=== PATIENT | male | born 1930 | race Caucasian/White ===

== ENCOUNTER 2020-10-25 11:45 | Inpatient (IN) ==
[2020-10-25] MEDS ORDERED: 0.9 % SODIUM CHLORIDE 500 ML IV ONE (12:10)
--- NOTE | 2020-10-25 12:15 | Emergency Department Note ---
Nausea/Vomiting/Diarrhea HPI General Chief complaint: Nausea/Vomiting/Diarrhea Stated complaint: diarrhea Time Seen by Provider: 10/25/20 11:51 Source: EMS Mode of arrival: ambulatory History of Present Illness HPI Narrative: Narrative: 89-year-old male with past medical history of dementia, hypertension, CKD, type 2 diabetes, upper GI bleed, rectal bleeding, dyslipidemia presents emergency department via EMS with complaints of diarrhea. Reports that this been going on for 1 day and that he has had about 10 bouts of diarrhea. He has not been on any recent antibiotics. He does have occasional diarrhea but not to this severity. He has not noticed any blood in his stool or melanotic stools. He denies fever, chest pain, shortness of breath, abdominal pain, nausea, vomiting. Although he denies that here in the emergency departme nt EMS got a report that the diarrhea has been going on for 3 days and he has been having increased weakness and has a had a decreased p.o. intake. Related Data Home Medications Medication Instructions Recorded Confirmed amlodipine 10 mg PO DAILY 09/16/15 08/26/20 cholecalciferol (vitamin D3) 50,000 unit PO WEEKLY 09/16/15 08/26/20 baclofen 10 mg tablet 10 mg PO QHS tab 04/25/18 08/26/20 hydroxyzine HCl 25 mg tablet 25 mg PO QHS tab 04/25/18 08/26/20 pravastatin 40 mg tablet 40 mg PO QDAY 04/25/18 08/26/20 ascorbic acid (vitamin C) 1,000 mg 1 g PO QDAY tab 09/23/18 08/26/20 tablet calcium citrate 500 mg PO QDAY tab 09/23/18 08/26/20 cholecalciferol (vitamin D3) 25 1,000 unit PO QDAY 09/23/18 08/26/20 mcg (1,000 unit) capsule docusate sodium 50 mg capsule 50 mg PO QDAY 09/23/18 08/26/20 glipizide 5 mg tablet, extended 15 mg PO QAMAC tab 09/23/18 08/26/20 release 24 hr [id number]-fish oil 120 1 cap PO QDAY cap 09/23/18 08/26/20 mg-180 mg-60 mg-1,200 mg capsule, DR agnieszka cesar 450 mg capsule 450 mg PO BID 09/23/18 08/26/20 vitamin B complex 1 tab PO QDAY 09/23/18 08/26/20 [place]'s wort 300 mg PO QAM 10/25/20 10/25/20 chromium picolinate 1,000 mcg PO ONCE 10/25/20 10/25/20 folic acid 800 mg PO HS 10/25/20 10/25/20 garlic 1,000 mg PO HS 10/25/20 10/25/20 omega 9-dox-rvj-fish oil [Fish Oil] 1 cap PO HS 10/25/20 10/25/20 Previous Rx's Medication Instructions Recorded bumetanide 1 mg tablet See Rx Instructions .ROUTE QDAY 05/06/20 #150 tab Allergies Allergy/AdvReac Type Severity Reaction Status Date / Time No Known Drug Allergies Allergy Verified 10/25/20 11:52 Review of Systems ROS ROS Narrative: Narrative: Patient denies chest pain, shortness breath, abdominal pain, nausea or vomiting, fever. All systems ED: reviewed and negative except as stated. Gastrointestinal: Reports diarrhea PFSH Narrative Patient History Narrative: Narrative: Medical/Surgical/Family History All Active Problems (Updated 10/25/20 @ 15:59 by Billy Carroll PA-C) EVERTON (acute kidney injury) (Acute) Hypokalemia (Acute) Acute renal failure superimposed on stage 4 chronic kidney disease (Acute) Dementia (Acute) Stage 3 acute kidney injury (Acute) Iron deficiency (Chronic) Localized edema due to fluid overload (Chronic) 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 (Chronic) Metabolic acidosis (Chronic) Hyperkalemia, diminished renal excretion (Chronic) CKD (chronic kidney disease) stage 4, GFR 15-29 ml/min (Chronic) Macular degeneration (Chronic) Upper gastrointestinal bleed (Chronic) Diabetes (Chronic) Anemia (Chronic) Rectal bleeding (Chronic) Elevated PSA (Chronic) Cholelithiasis (Chronic) Pancreatic atrophy (Chronic) Liver cyst (Chronic) Hyperlipidemia (Chronic) Hypertension (Chronic) Lower gastrointestinal hemorrhage (Acute) Medical History (Updated 10/25/20 @ 15:59 by Billy Carroll PA-C) Anemia Cholelithiasis Diabetes Elevated PSA Hyperlipidemia Hypertension Liver cyst Lower gastrointestinal hemorrhage Macular degeneration Pancreatic atrophy Rectal bleeding Upper gastrointestinal bleed Surgical History History of colonoscopy (09/17/15) Family History Other No pertinent family history Social History Smoking Status: Former smoker Alcohol Intake Frequency: holiday/special occasion only Exam Narrative Narrative: Narrative: General General appearance: Present alert and other (Nontoxic, no acute distress) Eye Eye: Present EOMI Respiratory Respiratory: Present normal lung sounds bilaterally Cardiovascular Cardiovascular: Present regular rate, normal rhythm and other (Radial pulse +2 bilaterally) Adbominal Abdominal: Present other (Soft, nondistended, no organomegaly no guarding no rebound tenderness.) Rectal Rectal: Present normal rectal tone, heme (-) stool and other Neurological Neurological: Present alert and other (Patient knows he is at [facility] in [place] but states that is 1968.) Psychiatric Psychiatric: Present normal affect Skin Skin: Present other (There is a chronic ulcer on the right plantar surface over the first distal metatarsal. It is nonweeping no surrounding erythema. Per nurse there is also chronic pressure sores on the patient's back as well as right buttock. These appear to be chronic and they are scabbed over.) Course Vital Signs Vital signs: Vital Signs Temperature 96.3 F L 10/25/20 11:48 Pulse Rate 67 10/25/20 11:48 Respiratory Rate 18 10/25/20 11:48 Blood Pressure 151/57 10/25/20 11:48 Pulse Oximetry (%) 99 10/25/20 11:48 Temperature 96.3 F L 10/25/20 11:48 Pulse Rate 69 10/25/20 15:31 Respiratory Rate 15 10/25/20 15:46 Blood Pressure 131/69 10/25/20 15:46 Pulse Oximetry (%) 100 10/25/20 15:31 MDM MDM Narrative Medical decision making narrative: Narrative: 89-year-old male presents emergency department via EMS with concerns of diarrhea. Per EMS that he is also been having the diarrhea for 3 days along with increased weakness and poor p.o. intake. On rectal exam he has heme negative. Per his history he does have kidney failure along with history of hyperkalemia so we will check a CMP for his electrolytes as well as a CBC to make sure there is no obvious signs of infection or signs of anemia since it looks like he does have a history of iron deficiency. We will give him a 500 cc bolus although his vital signs are normal and stable at this time. I did review his past charts that with nephrology with Dr. Villanueva which he has been reported to have diarrhea quite a bit which is seems to be caused by his iron pills. Nephrology did offer him iron infusions instead to help with this but declined. I did speak with the son who states that for the past year or so patient has been going downhill. In the last month or so patient has been repeating himself quite a bit more. Over the last 3 to 4 days the son states that he has been having worsening worse diarrhea where he is unable to make it to the bathroom since he has been more weak and today they were not even able to give out of his chair which is why they called EMS. The patient lives at home with his and does see home health care which does changes on his foot ulcer which is being followed by a life skills specialist in [place] but they have no additional care at home and the is also 89 and unable to help the patient or care for him at the level that is needed currently. Son would like to see if the patient can be placed in a nursing facility for care. He is also been having weakness we will get a chest x-ray and urine dip CBC CMP. Chest x-ray portable shows interstitial lung disease bilaterally which could be due to inflammation or fibrosis per radiologist. Urine dip is nitrate and leukocyte negative. There is protein as well as trace lysed blood. Urine culture ordered Stcon-ez-lyqe lactate is 0.08 Labs reviewed patient is is anemic he has elevated anion gap as well as acute kidney injury with elevated BUN and creatinine. He will need to be admitted for EVERTON. It with elevated anion gap I have ordered blood cultures x2 as well as a lactate. I spoke with Dr. Villanueva with nephrology who was on-call as well as the patient's shirt bander who agreed to consult with this patient. I did ask nephrology if he wanted any additional imaging done which he did not. I spoke with the hospitalist Dr. Kulkarni who agreed to come down to see the patient and talk with family to see if they were wanting comfort care or not. This patient was seen in conjunction with Dr. Bernal. Please see his addendum Lab Data Result diagrams: 10/25/20 12:11 10/25/20 12:11 Labs: Lab Results 10/25/20 10/25/20 10/25/20 Range/Units 11:00 12:11 12:11 WBC 8.3 (4.5-11.0) K/mcL RBC 3.73 L (4.50-5.90) M/mcL Hgb 9.2 L (13.5-16.5) g/dL Hct 28.8 L (41.0-55.0) % MCV 77.2 L (80.0-100.0) fL MCH 24.7 L (26.0-34.0) pg MCHC 31.9 (31.0-36.0) g/dL RDW 19.2 H (11.5-14.5) % Plt Count 160 (140-440) K/mcL MPV 10.4 (7.4-10.4) fL Neut % (Auto) 78.2 H (38.0-78.0) % Lymph % (Auto) 10.5 L (15.0-49.0) % [place] % (Auto) 10.0 (1.0-12.0) % Eos % (Auto) 1.2 (0.0-7.0) % Baso % (Auto) 0.1 (0.0-2.0) % Lymph # (Auto) 0.87 L (1.50-4.80) K/mcL [place] # (Auto) 0.83 (0.10-0.90) K/mcL Eos # (Auto) 0.10 (0.00-0.70) K/mcL Baso # (Auto) 0.01 (0.00-0.20) K/mcL Absolute Neutrophils 6.48 (1.80-8.00) K/mcL ABG Methemoglobin (0.4-1.5) % VBG pH (7.32-7.42) U VBG pCO2 (41.0-51.0) mmHg VBG pO2 (25.0-40.0) mmHg VBG HCO3 (24.0-28.0) mmol/L VBG Total CO2 (25.0-29.0) mmol/L VBG O2 Saturation (40.0-70.0) % VBG Base Excess (-2-3) Carboxyhemoglobin (0.0-1.5) % THgb Total Hemoglobin (13.5-16.5) gm/Dl Sodium 143 (133-145) mmol/L Potassium 3.2 L (3.3-5.1) mmol/L Chloride 113 H (96-108) mmol/L Carbon Dioxide 9 L* (22-30) mmol/L Anion Gap 21.0 H (8.0-16.0) BUN 180 H* (8-23) mg/dL Creatinine 5.6 H* (0.7-1.2) mg/dL GFR Calculation 8 Glucose 132 H (70-105) mg/dL Calcium 7.4 L (8.6-10.4) mg/dL Total Bilirubin 0.2 (0.1-1.0) mg/dL AST 14 (<40) U/L ALT 17 (<40) U/L Alkaline Phosphatase 80 (39-117) U/L Total Protein 6.6 (5.9-8.4) gm/dL Albumin 3.4 (3.2-5.2) gm/dL Globulin 3.2 (2.2-3.7) gm/dL Albumin/Globulin Ratio 1.1 (1.0-2.3) Urine Color Yellow Urine Appearance Hazy A (Clear) Urine pH 5.0 (5.0-9.0) Ur Specific [place] 1.009 (1.000-1.035) Urine Protein Negative (Negative) mg/dL Urine Glucose (UA) Negative (Negative) mg/dL Urine Ketones Negative (Negative) mg/dL Urine Occult Blood Negative (Negative) mg/dL Urine Nitrate Negative (Negative) Urine Bilirubin Negative (Negative) mg/dL Urine Urobilinogen Negative mg/dL Ur Leukocyte Esterase Negative (Negative) /ug Urine RBC < 1 (0-3) /hpf Urine WBC 1 (0-4) /hpf Ur Squamous Epith Cells < 1 (0-4) /hpf Urine Bacteria None (0) /hpf Hyaline Casts 6 H (0-2) /lph Urine Mucus Few A (None) /hpf Ur Culture Indicated? No 10/25/20 Range/Units 14:00 WBC (4.5-11.0) K/mcL RBC (4.50-5.90) M/mcL Hgb (13.5-16.5) g/dL Hct (41.0-55.0) % MCV (80.0-100.0) fL MCH (26.0-34.0) pg MCHC (31.0-36.0) g/dL RDW (11.5-14.5) % Plt Count (140-440) K/mcL MPV (7.4-10.4) fL Neut % (Auto) (38.0-78.0) % Lymph % (Auto) (15.0-49.0) % [place] % (Auto) (1.0-12.0) % Eos % (Auto) (0.0-7.0) % Baso % (Auto) (0.0-2.0) % Lymph # (Auto) (1.50-4.80) K/mcL [place] # (Auto) (0.10-0.90) K/mcL Eos # (Auto) (0.00-0.70) K/mcL Baso # (Auto) (0.00-0.20) K/mcL Absolute Neutrophils (1.80-8.00) K/mcL ABG Methemoglobin 0.3 L (0.4-1.5) % VBG pH 7.22 L (7.32-7.42) U VBG pCO2 21.1 L (41.0-51.0) mmHg VBG pO2 126.9 H (25.0-40.0) mmHg VBG HCO3 8.5 L* (24.0-28.0) mmol/L VBG Total CO2 9.1 L* (25.0-29.0) mmol/L VBG O2 Saturation 92.0 H (40.0-70.0) % VBG Base Excess -17 L (-2-3) Carboxyhemoglobin 5.8 H (0.0-1.5) % THgb Total Hemoglobin 9.1 L (13.5-16.5) gm/Dl Sodium (133-145) mmol/L Potassium (3.3-5.1) mmol/L Chloride (96-108) mmol/L Carbon Dioxide (22-30) mmol/L Anion Gap (8.0-16.0) BUN (8-23) mg/dL Creatinine (0.7-1.2) mg/dL GFR Calculation Glucose (70-105) mg/dL Calcium (8.6-10.4) mg/dL Total Bilirubin (0.1-1.0) mg/dL AST (<40) U/L ALT (<40) U/L Alkaline Phosphatase (39-117) U/L Total Protein (5.9-8.4) gm/dL Albumin (3.2-5.2) gm/dL Globulin (2.2-3.7) gm/dL Albumin/Globulin Ratio (1.0-2.3) Urine Color Urine Appearance (Clear) Urine pH (5.0-9.0) Ur Specific [place] (1.000-1.035) Urine Protein (Negative) mg/dL Urine Glucose (UA) (Negative) mg/dL Urine Ketones (Negative) mg/dL Urine Occult Blood (Negative) mg/dL Urine Nitrate (Negative) Urine Bilirubin (Negative) mg/dL Urine Urobilinogen mg/dL Ur Leukocyte Esterase (Negative) /ug Urine RBC (0-3) /hpf Urine WBC (0-4) /hpf Ur Squamous Epith Cells (0-4) /hpf Urine Bacteria (0) /hpf Hyaline Casts (0-2) /lph Urine Mucus (None) /hpf Ur Culture Indicated? ED POC Tests ED POC Tests: [place]AS[place] - SARS Antigen Negative Discharge Plan Patient/Caregiver Discharge Instructions Pt seen by SOAKING PIT OPERATOR/PA only: Yes Clinical Impression: EVERTON (acute kidney injury) Activity: increase activity as tolerated Patient Disposition: Xfer As Inpt ([facility]) Condition: Serious Follow up with: Igor Rust MD [Primary Care Provider] - Prescriptions: No Action bumetanide 1 mg tablet See Rx Instructions .ROUTE QDAY Qty: 150 RF: 11 pravastatin 40 mg tablet 40 mg PO QDAY RF: 0 baclofen 10 mg tablet 10 mg PO QHS RF: 0 hydroxyzine HCl 25 mg tablet 25 mg PO QHS RF: 0 saw palmetto 450 mg capsule 450 mg PO BID RF: 0 calcium citrate 250 mg calcium tablet 500 mg PO QDAY RF: 0 cholecalciferol (vitamin D3) 1,000 unit capsule 1,000 unit PO QDAY RF: 0 ascorbic acid (vitamin C) 1,000 mg tablet 1 g PO QDAY RF: 0 xgjpg-[id number]-epa-fish oil 120 mg-180 mg-60 mg-1,200 mg capsule, DR 120 mg-180 mg- 60 mg-1,200 mg capsule,delayed release(DR/EC) 1 cap PO QDAY RF: 0 vitamin B complex tablet 1 tab PO QDAY RF: 0 Stool Softener 50 mg capsule 50 mg PO QDAY RF: 0 amlodipine 10 MG tablet 10 mg PO DAILY RF: 0 cholecalciferol (vitamin D3) 10,000 UNIT capsule 50,000 unit PO WEEKLY RF: 0 glipizide 5 mg tablet extended release 24hr 15 mg PO QAMAC RF: 0 Sylvie's wort 300 mg Tablet 300 mg PO QAM RF: 0 garlic 1,000 mg Capsule 1,000 mg PO HS RF: 0 folic acid 800 mcg Tablet 800 mg PO HS RF: 0 omega 2-iyd-tyu-fish oil [Fish Oil] 1,200 (144-216) mg Capsule 1 cap PO HS RF: 0 chromium picolinate 1,000 mcg Tablet 1,000 mcg PO ONCE RF: 0
[2020-10-25 12:56] LABS: Basophils # (Auto) 0.01 K/mcL (0.00-0.20); Basophils % (Auto) 0.1 % (0.0-2.0); Eosinophils % (Auto) 1.2 % (0.0-7.0); Hematocrit 28.8 % (41.0-55.0); Hemoglobin 9.2 g/dL (13.5-16.5); Lymphocytes # (Auto) 0.87 K/mcL (1.50-4.80); Lymphocytes % (Auto) 10.5 % (15.0-49.0); Mean Cell Volume 77.2 fL (80.0-100.0); Mean Corpuscular HGB Conc 31.9 g/dL (31.0-36.0); Mean Platelet Volume 10.4 fL (7.4-10.4); Monocytes # (Auto) 0.83 K/mcL (0.10-0.90); Neutrophils % (Auto) 78.2 % (38.0-78.0); Platelet Count 160 K/mcL (140-440); RBC 3.73 M/mcL (4.50-5.90); Red Cell Distribution Width 19.2 % (11.5-14.5); WBC 8.3 K/mcL (4.5-11.0)
--- NOTE | 2020-10-25 13:11 | XRay Report ---
HISTORY: Increased weakness with diarrhea FINDINGS: There are prominent increased interstitial lung markings bilaterally with the greatest involvement in the left lower lobe. There is no lobar consolidation. No pleural effusion is present. There is no apparent adenopathy. The heart size is normal. There are calcified plaques along the wall of the aortic arch. IMPRESSION: Interstitial lung disease bilaterally which could be due to inflammation or fibrosis Interpreted and Authenticated by: Emerson Snider 10/25/20
[2020-10-25 13:29] LABS: ALT/SGPT 17 U/L (<40); AST/SGOT 14 U/L (<40); Albumin 3.4 gm/dL (3.2-5.2); Albumin/Globulin Ratio 1.1 (1.0-2.3); Alkaline Phosphatase 80 U/L (39-117); Bilirubin,Total 0.2 mg/dL (0.1-1.0); Blood Urea Nitrogen 180 mg/dL (8-23); Calcium 7.4 mg/dL (8.6-10.4); Carbon Dioxide 9 mmol/L (22-30); Chloride 113 mmol/L (96-108); Globulin 3.2 gm/dL (2.2-3.7); Glomerular Filtration Rate 8; Glucose 132 mg/dL (70-105)
[2020-10-25 14:36] LABS: ABG Methemoglobin 0.3 % (0.4-1.5); Total Hemoglobin 9.1 gm/Dl (13.5-16.5); VBG Base Excess -17 (-2-3); VBG HCO3 8.5 mmol/L (24.0-28.0); VBG PCO2 21.1 mmHg (41.0-51.0); VBG PH 7.22 U (7.32-7.42); VBG PO2 126.9 mmHg (25.0-40.0); VBG Total CO2 9.1 mmol/L (25.0-29.0)
[2020-10-25 15:07] LABS: Appearance,Urine HAZY (Clear); Bilirubin,Urine Negative (Negative); Color,Urine YELLOW; Culture Indicated,Urine No; Glucose,Urine (UA) Negative (Negative); Ketones,Urine Negative (Negative); Leukocyte Esterase,Urine Negative /ug (Negative); Mucus,Urine FEW /hpf; Nitrate,Urine Negative (Negative); Protein,Urine Negative (Negative); Specific Gravity,Urine 1.009 (1.000-1.035); Urine Blood Negative (Negative); Urine Hyaline Cast 6 /lph (0-2); Urine RBC < 1 /hpf (0-3); Urine Squamous Epithelial Cell < 1 /hpf (0-4); Urine WBC 1 /hpf (0-4); Urobilinogen,Urine Negative
--- NOTE | 2020-10-25 15:23 | Internal Med History&Physical ---
HPI History of Present Illness Patient information: Note initiated : 10/25/20 at 3:17 pm Service Date, if different from initiated Date: [] Patient: Torey Restrepo a 89 y/o M admitted on for diarrhea. Chief Complaint: [Diarrhea] Following HPI is limited by the clinical situations. History of present illness: Mr. Restrepo is a 89 year old M h/o T2DM, essential HTN, mixed dyslipidemia, dementia, p/w 3 days history of watery diarrhea. There was no prior similar episode. Patient has been living in eating with his and there is no introduction of new foods or recent travel. According to the son, patient's has been having more than 10 episodes of watery diarrhea without hematochezia Melissa, hematochezia, melena, or black stool in the past 3 days. There is no change in appetite. The patient has no nausea or vomiting. The patient is also reported to be appearing more confused than his baseline, although he is also noted to have some baseline dementia. Because of his symptoms, patient was being sent to our ED for further evaluations and t reatments. Pea-sized slightly elevated blood pressure, the rest of the vital signs have been within normal limits. Labs significant for lack of leukocytosis with WBC 8.3. Chemistry significant for serum creatinine 5.6, with baseline less than 3. Potassium 3.2. He is also noted to have metabolic acidosis with serum bicarb 9. Serum lactic acid level 0.5. Given the severe acute kidney injury, I have a discussion with the son at the bedside regarding the potential need of emergent hemodialysis. After talking about her overall goals of care, he agreed of opting out emergent hemodialysis at this point and have the patient's be admitted to our facility to initiate the treatment, knowing the fact that we do not have the capacity to insert an emergent dialysis catheter for any potential hemodialysis in the hospital. Constitutional Constitutional: Absent chills, excessive sweating, fatigue, fever(s) and weakness EENT Eyes: Absent blurry vision, change in vision, loss of vision and other visual disturbances Ears: Absent decreased hearing and tinnitus Nose, mouth and throat: Absent abnormal hearing, dry mouth, headache(s), nasal c ongestion and sore throat Cardiovascular Cardiovascular: Absent chest pain, chest pain at rest, edema, irregular heart rhythm and palpatations Respiratory Respiratory: Absent cough, dyspnea and wheezing Gastrointestinal Gastrointestinal: Present diarrhea; Absent abdominal pain, constipation, nausea and vomiting Musculoskeletal Musculoskeletal: Absent back pain, deformity, limited range of motion, muscle cramps, muscle weakness and numbness Integumentary Integumentary: Absent lesions, rash and wounds Neurological Neurological: Absent focal weakness, headache(s) and numbness Psychiatric Psychiatric: Absent anxiety, depression and hallucinations PFSH PFSH All Active Problems (Updated 10/25/20 @ 15:33 by Maikel Kulkarni MD) Hypokalemia (Acute) Acute renal failure superimposed on stage 4 chronic kidney disease (Acute) Dementia (Acute) Stage 3 acute kidney injury (Acute) Iron deficiency (Chronic) Localized edema due to fluid overload (Chronic) 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 (Chronic) Metabolic acidosis (Chronic) Hyperkalemia, diminished renal excretion (Chronic) CKD (chronic kidney disease) stage 4, GFR 15-29 ml/min (Chronic) Macular degeneration (Chronic) Upper gastrointestinal bleed (Chronic) Diabetes (Chronic) Anemia (Chronic) Rectal bleeding (Chronic) Elevated PSA (Chronic) Cholelithiasis (Chronic) Pancreatic atrophy (Chronic) Liver cyst (Chronic) Hyperlipidemia (Chronic) Hypertension (Chronic) Lower gastrointestinal hemorrhage (Acute) Medical History (Updated 10/25/20 @ 15:33 by Maikel Kulkarni MD) Anemia Cholelithiasis Diabetes Elevated PSA Hyperlipidemia Hypertension Liver cyst Lower gastrointestinal hemorrhage Macular degeneration Pancreatic atrophy Rectal bleeding Upper gastrointestinal bleed Surgical History History of colonoscopy (09/17/15) Family History Other No pertinent family history Social History (Updated 05/01/19 @ 14:27 by Chey Villanueva MD) alcohol intake frequency: holiday/special occasion only MEDS/ALLERGIES Home Medications and Allergies Home Medications Medication Instructions Recorded Confirmed Type amlodipine 10 mg PO DAILY 09/16/15 10/25/20 History cholecalciferol (vitamin D3) 50,000 unit PO WEEKLY 09/16/15 10/25/20 History baclofen 10 mg tablet 10 mg PO QHS tab 04/25/18 10/25/20 History hydroxyzine HCl 25 mg tablet 25 mg PO QHS tab 04/25/18 10/25/20 History pravastatin 40 mg tablet 40 mg PO QDAY 04/25/18 10/25/20 History ascorbic acid (vitamin C) 1,000 mg 1 g PO QDAY tab 09/23/18 10/25/20 History tablet calcium citrate 500 mg PO QDAY tab 09/23/18 10/25/20 History cholecalciferol (vitamin D3) 25 1,000 unit PO QDAY 09/23/18 10/25/20 History mcg (1,000 unit) capsule docusate sodium 50 mg capsule 50 mg PO QDAY 09/23/18 10/25/20 History glipizide 5 mg tablet, extended 15 mg PO QAMAC tab 09/23/18 10/25/20 History release 24 hr rsipz-7l-poi-epa-fish oil 120 1 cap PO QDAY cap 09/23/18 10/25/20 History mg-180 mg-60 mg-1,200 mg capsule, DR aaron palmdionisio 450 mg capsule 450 mg PO BID 09/23/18 10/25/20 History vitamin B complex 1 tab PO QDAY 09/23/18 10/25/20 History bumetanide 1 mg tablet See Rx Instructions .ROUTE QDAY 05/06/20 10/25/20 Rx #150 tab Sylvie's wort 300 mg PO QAM 10/25/20 10/25/20 History chromium picolinate 1,000 mcg PO ONCE 10/25/20 10/25/20 History folic acid 800 mg PO HS 10/25/20 10/25/20 History garlic 1,000 mg PO HS 10/25/20 10/25/20 History omega 2-gup-rks-fish oil [Fish Oil] 1 cap PO HS 10/25/20 10/25/20 History Allergies Allergy/AdvReac Type Severity Reaction Status Date / Time No Known Drug Allergies Allergy Verified 10/25/20 11:52 EXAM Constitutional Vitals: Temp Pulse Resp BP Pulse Ox 35.7 C L 82 13 155/65 100 10/25/20 11:48 10/25/20 14:46 10/25/20 14:46 10/25/20 14:46 10/25/20 14:46 General appearance: cooperative and no acute distress Head Head exam: Present atraumatic and normocephalic Eye Eye exam: Present EOMI and PERRL ENT ENT exam: Present mucous membranes moist, normal exam and normal external ear exam Neck Neck exam: Present normal inspection; Absent lymphadenopathy, tenderness and thyromegaly Respiratory Respiratory exam: Absent accessory muscle use, respiratory distress and wheezes Cardiovascular Cardiovascular exam: Present normal rate and rhythm; Absent JVD GI/Abdominal GI/Abdominal exam: Present normal bowel sounds and soft; Absent organomegaly and tenderness Rectal Rectal exam: Present deferred Extremities Exam Extremities exam: Present full ROM, normal capillary refill and normal inspection; Absent tenderness Neurological Exam Neurological exam: Present alert and CN II-XII intact; Absent motor sensory deficit Additional comments: Oriented x2 to person and place only Psychiatric Psychiatric exam: Present normal affect and normal mood; Absent anxious and depressed Skin Skin exam: Present dry and intact DATA Data Completed and Pending Labs: Labs from last 24 hours 10/25/20 10/25/20 10/25/20 14:00 12:11 12:11 WBC 8.3 RBC 3.73 L Hgb 9.2 L Hct 28.8 L MCV 77.2 L MCH 24.7 L MCHC 31.9 RDW 19.2 H Plt Count 160 MPV 10.4 Neut % (Auto) 78.2 H Lymph % (Auto) 10.5 L Love % (Auto) 10.0 Eos % (Auto) 1.2 Baso % (Auto) 0.1 Lymph # (Auto) 0.87 L Love # (Auto) 0.83 Eos # (Auto) 0.10 Baso # (Auto) 0.01 Absolute Neutrophils 6.48 ABG Methemoglobin 0.3 L VBG pH 7.22 L VBG pCO2 21.1 L VBG pO2 126.9 H VBG HCO3 8.5 L* VBG Total CO2 9.1 L* VBG O2 Saturation 92.0 H VBG Base Excess -17 L Carboxyhemoglobin 5.8 H Total Hemoglobin 9.1 L Sodium 143 Potassium 3.2 L Chloride 113 H Carbon Dioxide 9 L* Anion Gap 21.0 H BUN 180 H* Creatinine 5.6 H* GFR Calculation 8 Glucose 132 H Calcium 7.4 L Total Bilirubin 0.2 AST 14 ALT 17 Alkaline Phosphatase 80 Total Protein 6.6 Albumin 3.4 Globulin 3.2 Albumin/Globulin Ratio 1.1 Urine Color Urine Appearance Urine pH Ur Specific [place] Urine Protein Urine Glucose (UA) Urine Ketones Urine Occult Blood Urine Nitrate Urine Bilirubin Urine Urobilinogen Ur Leukocyte Esterase Urine RBC Urine WBC Ur Squamous Epith Cells Urine Bacteria Hyaline Casts Urine Mucus Ur Culture Indicated? 10/25/20 11:00 WBC RBC Hgb Hct MCV MCH MCHC RDW Plt Count MPV Neut % (Auto) Lymph % (Auto) Love % (Auto) Eos % (Auto) Baso % (Auto) Lymph # (Auto) Love # (Auto) Eos # (Auto) Baso # (Auto) Absolute Neutrophils ABG Methemoglobin VBG pH VBG pCO2 VBG pO2 VBG HCO3 VBG Total CO2 VBG O2 Saturation VBG Base Excess Carboxyhemoglobin Total Hemoglobin Sodium Potassium Chloride Carbon Dioxide Anion Gap BUN Creatinine GFR Calculation Glucose Calcium Total Bilirubin AST ALT Alkaline Phosphatase Total Protein Albumin Globulin Albumin/Globulin Ratio Urine Color Yellow Urine Appearance Hazy A Urine pH 5.0 Ur Specific [place] 1.009 Urine Protein Negative Urine Glucose (UA) Negative Urine Ketones Negative Urine Occult Blood Negative Urine Nitrate Negative Urine Bilirubin Negative Urine Urobilinogen Negative Ur Leukocyte Esterase Negative Urine RBC < 1 Urine WBC 1 Ur Squamous Epith Cells < 1 Urine Bacteria None Hyaline Casts 6 H Urine Mucus Few A Ur Culture Indicated? No A/P Assessment and plan (1) Stage 3 acute kidney injury: Assessment and plan: Stage III acute kidney injury with admitting serum creatinine level 5.6 with baseline serum creatinine level less than 3. Again, I have the chance to talk to the son at the bedside regarding the overall prognosis and goals of care and B which is agreement that they would not pursued emergent hemodialysis at this point. Instead, we will admit the patient to inpatient medical surgical unit with cardiac monitoring and we will also provide the patient with IV fluid normal saline at 125 cc/h to give adequate hydration to the patient's. We will also consult nephrology, any recommendations appreciated. We will also repeat CMP in the morning to trend kidney functions. We will also avoid any nephrotoxic agents at this moment. Status: Acute (2) Hypokalemia: Assessment and plan: Different acute kidney injury, will not do potassium replacement protocol. Instead, will do manual replacement. For now, we will give the patient's potassium chloride 20 M EQ by mouth. We will repeat a CMP in the morning to trend serum potassium level and will repeat replacement as needed. We will also consult nephrology and any recommendations appreciated. Status: Acute (3) Diabetes: Assessment and plan: Measure hemoglobin A1c Hold any oral hypoglycemic Low dose correctional scale insulin is suggested Accu-Chek is suggested Hypoglycemia protocol Diabetic diet Status: Chronic (4) CKD (chronic kidney disease) stage 4, GFR 15-29 ml/min: Assessment and plan: Again, stage III acute kidney injury in the context of chronic kidney disease stage IV. Avoid nephrotoxic agents, continue IV fluid replacement, and consult nephrology any recommendations appreciated. No emergent hemodialysis at this point as per family wishes. Status: Chronic (5) Metabolic acidosis: Assessment and plan: Consult nephrology, recommendation appreciated. 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 Continue oral antihypertensives. Status: Chronic (7) Hyperlipidemia: Assessment and plan: LFTs are within normal limits at this point. Thus, continue statin therapy at the moment. Status: Chronic (8) Hypertension: Assessment and plan: See above sections with hypertension in stage IV chronic kidney disease due to type 2 diabetes mellitus. In short, continue oral antihypertensive. Status: Chronic (9) Dementia: Assessment and plan: Consult physical therapy and rehabilitation caseworker for placement pending. Status: Acute Time Spent With Patient Time: Total time spent is greater than 50% in coordination of care (as documented) at patient's floor/unit and/or counseling patient: Total time spent with greater than 50% in coordination of care (as documented) at patient's floor/unit and/or counseling patient:: 25 - 35 minutes
--- NOTE | 2020-10-25 15:28 | Nephrology Consult Note ---
HPI Data of Consult Patient: known to practice within the last 3 years Consult date: 10/25/20 Requesting physician: Billy Carroll Primary Care Provider: Igor Rust Consult Narrative Patient Information: Note initiated : 10/25/20 at 3:25 pm Patient: Torey Restrepo 89 y/o M admitted on for diarrhea. Chief Complaint: Diarrhea Torey Restrepo is an 89-year-old male with diabetes mellitus type 2, hypertension, chronic kidney disease stage 4, chronic anemia associated with chronic kidney disease and iron deficiency, dementia, history of upper GI b leeding, rectal bleeding presented to [facility] emergency department on 10/25/20 via EMS for diarrhea. Hr reported about 10 bouts of diarrhea in one day. In ED, his work up was significant for acute kidney injury. Nephrology consultation was requested for acute kidney injury. Chief complaint: Diarrhea Reason for consult: Acute kidney injury on chronic kidney disease stage 4 cc:: CC: Constitutional Constitutional: Present weakness and weight loss EENT Nose, mouth and throat: Absent nasal discharge and sore throat Cardiovascular Cardiovascular: Absent chest pain and palpatations Respiratory Respiratory: Absent cough and dyspnea Gastrointestinal Gastrointestinal: Present diarrhea; Absent nausea Integumentary Integumentary: Absent rash and wounds Neurological Neurological: Present weakness Psychiatric Psychiatric: Absent anxiety Endocrine Endocrine: Absent cold intolerance and heat intolerance Hematologic/Lymphatic Hematologic/Lymphatic: Absent easy bleeding and easy bruising Allergic/Immunologic Allergic/Immunologic: Absent tongue swelling and uticaria PFSH PFSH All Active Problems (Updated 10/25/20 @ 16:06 by Chey Villanueva MD) [place] (acute kidney injury) (Acute) Hypokalemia (Acute) Acute renal failure superimposed on stage 4 chronic kidney disease (Acute) Dementia (Acute) Stage 3 acute kidney injury (Acute) Iron deficiency (Chronic) Localized edema due to fluid overload (Chronic) 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 (Chronic) Metabolic acidosis (Acute) Hyperkalemia, diminished renal excretion (Chronic) CKD (chronic kidney disease) stage 4, GFR 15-29 ml/min (Chronic) Macular degeneration (Chronic) Upper gastrointestinal bleed (Chronic) Diabetes (Chronic) Anemia (Chronic) Rectal bleeding (Chronic) Elevated PSA (Chronic) Cholelithiasis (Chronic) Pancreatic atrophy (Chronic) Liver cyst (Chronic) Hyperlipidemia (Chronic) Hypertension (Chronic) Lower gastrointestinal hemorrhage (Acute) Medical History (Updated 10/25/20 @ 16:06 by Chey Villanueva MD) Anemia Cholelithiasis Diabetes Elevated PSA Hyperlipidemia Hypertension Liver cyst Lower gastrointestinal hemorrhage Macular degeneration Pancreatic atrophy Rectal bleeding Upper gastrointestinal bleed Surgical History History of colonoscopy (09/17/15) Family History Other No pertinent family history Social History (Updated 05/01/19 @ 14:27 by Chey Villanueva MD) alcohol intake frequency: holiday/special occasion only MEDS/ALLERGIES Home Medications and Allergies Home Medications Medication Instructions Recorded Confirmed Type amlodipine 10 mg PO DAILY 09/16/15 10/25/20 History cholecalciferol (vitamin D3) 50,000 unit PO WEEKLY 09/16/15 10/25/20 History baclofen 10 mg tablet 10 mg PO QHS tab 04/25/18 10/25/20 History hydroxyzine HCl 25 mg tablet 25 mg PO QHS tab 04/25/18 10/25/20 History pravastatin 40 mg tablet 40 mg PO QDAY 04/25/18 10/25/20 History ascorbic acid (vitamin C) 1,000 mg 1 g PO QDAY tab 09/23/18 10/25/20 History tablet calcium citrate 500 mg PO QDAY tab 09/23/18 10/25/20 History cholecalciferol (vitamin D3) 25 1,000 unit PO QDAY 09/23/18 10/25/20 History mcg (1,000 unit) capsule docusate sodium 50 mg capsule 50 mg PO QDAY 09/23/18 10/25/20 History glipizide 5 mg tablet, extended 15 mg PO QAMAC tab 09/23/18 10/25/20 History release 24 hr nghyc-4w-veu-epa-fish oil 120 1 cap PO QDAY cap 09/23/18 10/25/20 History mg-180 mg-60 mg-1,200 mg capsule, DR agnieszka cesar 450 mg capsule 450 mg PO BID 09/23/18 10/25/20 History vitamin B complex 1 tab PO QDAY 09/23/18 10/25/20 History bumetanide 1 mg tablet See Rx Instructions .ROUTE QDAY 05/06/20 10/25/20 Rx #150 tab [place]'s wort 300 mg PO QAM 10/25/20 10/25/20 History chromium picolinate 1,000 mcg PO ONCE 10/25/20 10/25/20 History folic acid 800 mg PO HS 10/25/20 10/25/20 History garlic 1,000 mg PO HS 10/25/20 10/25/20 History omega 9-mze-xqv-fish oil [Fish Oil] 1 cap PO HS 10/25/20 10/25/20 History Allergies Allergy/AdvReac Type Severity Reaction Status Date / Time No Known Drug Allergies Allergy Verified 10/25/20 11:52 Physical Examination Vital Signs Vital signs: Temp Pulse Resp BP Pulse Ox 96.3 F L 71 11 L 153/60 100 10/25/20 11:48 10/25/20 15:16 10/25/20 15:16 10/25/20 15:16 10/25/20 15:16 General Appearance General appearance: chronically ill, fatigue and frail EENT EENT: mucous membranes dry Neck Neck: no JVD Respiratory Respiratory: clear Cardiovascular Cardiology: edema and regular rate Gastrointestinal Gastrointestinal: no tenderness Integumentary Integumentary: no rash Neurologic Neurologic: no focal deficit Musculoskeletal Musculoskeletal: no deformities Psychiatric Psychiatric: mood/affect appropriate and cooperative Results Lab Results Result Diagrams: 10/25/20 12:11 10/25/20 12:11 Lab results: Most recent lab results Creatinine 5.6 mg/dL (0.7-1.2) H* 10/25/20 12:11 Calcium 7.4 mg/dL (8.6-10.4) L 10/25/20 12:11 A/P Assessment and plan (1) Acute renal failure superimposed on stage 4 chronic kidney disease: Assessment and plan: Torey Restrepo is an 89-year-old male with diabetes mellitus type 2, hypertension, chronic kidney disease stage 4, chronic anemia associated with chronic kidney disease and iron deficiency, dementia, history of upper GI bleeding, rectal bleeding presented to [facility] emergency department on 10/25/20 via EMS for diarrhea. Hr reported about 10 bouts of diarrhea in one day. In ED, his work up was significant for acute kidney injury. Nephrology consultation was requested for acute kidney injury. Acute kidney injury on chronic kidney disease stage 4 with hypokalemia, high anion gap metabolic acidosis associated with diarrhea and diuretics, present on arrival. There is no recent history of IV contrast administration or NSAID use. Workup: Urinalysis on 10/25/20: Yellow, hazy, pH 5.0, SG 1.009, protein negative, blood negative, leukocyte esterase negative. Previous workup: Labs on 08/16/20: Serum sodium 143, potassium 4.7, CO2 22, creatinine 2.8, eGFR 19, calcium 8.1, phosphorus 4.7, albumin 3.7, Vitamin D Total (25-Hydroxy) 39.43, PTH (intact) 169.1, magnesium 2.4, uric acid 10.2, TIBC 9%, HA1c 6.1%. CT Abdomen and Pelvis on 03/04/18: A small cyst in the left kidney is unchanged. There is mild perinephric stranding as previously seen. Mild prostate enlargement - the prostate measuring 5.6 cm in transverse dimension. Previously, it was 5.4 cm. Urinary bladder is normal. Progress: Serum creatinine increased from 1.9-2.8 to 5.6. Baseline serum creatinine: 1.9-2.8. Metabolic acidosis. Hypokalemia. Recommendations/Plan: Normal Saline changed to Sodium Bicarbonate 150 mEq in 1L D5W at 100 ml/hour for metabolic acidosis. No urgent acute hemodialysis need. Avoid NSAIDs, nephrotoxic medications and IV contrast. Hold STORM/ARB, diuretics. Monitor BMP and urine output. Status: Acute (2) Hypokalemia: Status: Acute (3) Metabolic acidosis: Status: Acute Time Spent With Patient Time: Total time spent is greater than 50% in coordination of care (as documented) at patient's floor/unit and/or counseling patient:
[2020-10-25] MEDS ORDERED: ONDANSETRON 4 MG/2 ML VIAL IV PRN (17:26)
[2020-10-25] MEDS ORDERED: POTASSIUM CHLORIDE 20 MEQ TABLET PO ONE (17:26)
[2020-10-25] MEDS ORDERED: DEXTROSE 31 GM ORAL.SUSP PO PRN (17:26)
[2020-10-25] MEDS ORDERED: DEXTROSE 5% IN WATER 1,000 ML IV SCH (17:26)
[2020-10-25] MEDS ORDERED: DEXTROSE 50% 50 ML VIAL IV PRN (17:26)
[2020-10-25] MEDS ORDERED: traZODone HCL 50 MG TABLET PO PRN (17:26)
[2020-10-25] MEDS ORDERED: ACETAMINOPHEN 325 MG TABLET PO PRN (17:26)
[2020-10-25] MEDS ORDERED: SODIUM BICARBONATE VIAL 150 MEQ in WATER FOR INJECTION,STERILE 850 ML IV SCH (18:00)
[2020-10-25] MEDS ORDERED: SODIUM BICARBONATE ADULT IV SCH (19:00)
[2020-10-25] MEDS ORDERED: WATER IV SCH (19:00)
[2020-10-25] MEDS ORDERED: DEXTROSE 5% IV SCH (19:00)
[2020-10-25] MEDS: SODIUM BICARBONATE 50 MEQ/50 ML VIAL ONE ×2 (19:16→20:55)
[2020-10-25] MEDS: INSULIN LISPRO 1 UNIT/0.01 ML UNIT SQ SCH ×2 (19:18→22:05)
[2020-10-25] MEDS: DOCUSATE SODIUM 100 MG CAPSULE PO SCH (20:28)
[2020-10-25] MEDS: 0.9 % SODIUM CHLORIDE 10 ML SYRINGE IV SCH (20:29)
[2020-10-25] MEDS: SENNOSIDES 1 TABLET PO SCH (20:29)
[2020-10-25] MEDS: BACLOFEN 10 MG TABLET PO SCH (20:53)
[2020-10-25] MEDS: FISH OIL 1,000 MG CAPSULE PO SCH (20:54)
[2020-10-25] MEDS: HEPARIN 5,000 UNIT/ML VIAL SQ SCH (20:54)
[2020-10-25] MEDS ORDERED: hydrOXYzine 25 MG TABLET PO SCH (21:00)
[2020-10-25 22:31] LABS: Estimated Average Glucose(eAG) 151 mg/dL; Hemoglobin A1C 6.9 % Hgb (4.0-6.0)
[2020-10-26] MEDS: 0.9 % SODIUM CHLORIDE 10 ML SYRINGE IV SCH ×3 (06:00→22:03)
[2020-10-26] MEDS ORDERED: OMEGA DHA EPA FISH OIL PO SCH (09:00)
[2020-10-26] MEDS ORDERED: PRAVASTATIN 40 MG TABLET PO SCH (09:00)
--- NOTE | 2020-10-26 09:02 | Internal Med Progress Note ---
SUBJECTIVE Subjective Patient information: Note initiated : 10/26/20 at 8:57 am Service Date, if different from initiated Date: [] Patient: Torey Restrepo 89 y/o M admitted on 10/25/20 for diarrhea. Chief Complaint: [] Overnight: No bowel movements overnight. Subjective: "I feel sick". Patient cannot further elaborate upon further questioning. Constitutional Vitals: Vital Signs Temp Pulse Resp BP Pulse Ox 36.2 C 76 12 187/61 100 10/26/20 07:32 10/26/20 07:32 10/26/20 07:32 10/26/20 07:32 10/26/20 07:32 Period Temp Pulse Resp BP Sys/[place] Pulse Ox Last 24 Hr 35.7 C-36.2 C 61-82 9-20 109-187/50-132 95-100 Intake and Output 10/25/20 10/26/20 10/26/20 21:59 05:59 13:59 Intake Total 1000 50 Output Total 1 2 Balance 999 48 Weight 77.201 kg Intake & Output: Intake & Output 10/25/20 10/26/20 10/26/20 21:59 05:59 13:59 Intake Total 1000 50 Output Total 1 2 Balance 999 48 Weight 77.201 kg Intake: IV 1000 Sodium Chloride 0.9% 500 ml @ 1000 Wide Open IV BOLUS ONE Rx#: [id number] Oral 50 Output: # of times incontinent of urine 1 2 Neurological Exam Neurological exam: Present alert Additional comments: oriented Time [address] only OBJ DATA Labs CBC & Chem 7: 10/25/20 12:11 10/25/20 12:11 Labs: Abnormal Lab Results 10/25/20 10/25/20 10/25/20 14:00 12:11 12:11 RBC Hgb Hct MCV MCH RDW Neut % (Auto) Lymph % (Auto) Lymph # (Auto) ABG Methemoglobin 0.3 L VBG pH 7.22 L VBG pCO2 21.1 L VBG pO2 126.9 H VBG HCO3 8.5 L* VBG Total CO2 9.1 L* VBG O2 Saturation 92.0 H VBG Base Excess -17 L Carboxyhemoglobin 5.8 H Total Hemoglobin 9.1 L Potassium 3.2 L Chloride 113 H Carbon Dioxide 9 L* Anion Gap 21.0 H BUN 180 H* Creatinine 5.6 H* Glucose 132 H Hemoglobin A1c 6.9 H Calcium 7.4 L Urine Appearance Hyaline Casts Urine Mucus 10/25/20 10/25/20 12:11 11:00 RBC 3.73 L Hgb 9.2 L Hct 28.8 L MCV 77.2 L MCH 24.7 L RDW 19.2 H Neut % (Auto) 78.2 H Lymph % (Auto) 10.5 L Lymph # (Auto) 0.87 L ABG Methemoglobin VBG pH VBG pCO2 VBG pO2 VBG HCO3 VBG Total CO2 VBG O2 Saturation VBG Base Excess Carboxyhemoglobin Total Hemoglobin Potassium Chloride Carbon Dioxide Anion Gap BUN Creatinine Glucose Hemoglobin A1c Calcium Urine Appearance Hazy A Hyaline Casts 6 H Urine Mucus Few A Meds: Medications Acetaminophen (Acetaminophen 325 Mg Tablet) 650 mg PO Q6HP PRN; Protocol PRN Reason: Per Pain Protocol/Fever > 101 Last Admin: 10/26/20 03:01 Dose: 650 mg Documented by: Amlodipine Besylate (Amlodipine 10 Mg Tablet) 10 mg PO DAILY [facility] Ascorbic Acid (Ascorbic Acid 500 Mg Tablet) 1,000 mg PO QDAY [facility] Baclofen (Baclofen 10 Mg Tablet) 10 mg PO QHS [facility] Last Admin: 10/25/20 20:53 Dose: 10 mg Documented by: Calcium Carbonate/Glycine (Calcium (Oyster Shell) 500 Mg Tablet) 500 mg PO QDAY [facility] Dextrose (Dextrose 50% 50 Ml Vial) 0 ml IV UD PRN PRN Reason: Hypoglycemia Diagnostic Test (Pha) (Accu-Chek 1 Each Strip) 1 each FS ACHS [facility] Last Admin: 10/25/20 22:05 Dose: 1 each Documented by: Docusate Sodium (Docusate Sodium 100 Mg Capsule) 100 mg PO BID [facility] Last Admin: 10/25/20 20:28 Dose: Not Given Documented by: Fish Oil (Fish Oil 1,000 Mg Capsule) 1 mg PO BID [facility] Last Admin: 10/25/20 20:54 Dose: Not Given Documented by: Folic Acid (Folic Acid 1 Mg Tablet) 1 mg PO DAILY [facility] Glucose (Dextrose 31 Gm Oral.Susp) 15 gm PO PRN PRN PRN Reason: Hypoglycemia Heparin Sodium (Porcine) (Heparin 5,000 Unit/Ml Vial) 5,000 unit SQ Q12 [facility] Last Admin: 04/19/21 20:54 Dose: 5,000 unit Documented by: Hydroxyzine HCl (Hydroxyzine 25 Mg Tablet) 25 mg PO QHS [facility] Last Admin: 10/25/20 21:52 Dose: Not Given Documented by: Insulin Human Lispro (Insulin Lispro 1 Unit/0.01 Ml Unit) 0 unit SQ ACHS [facility]; Protocol Last Admin: 10/25/20 22:05 Dose: 1 unit Documented by: Loperamide HCl (Loperamide 2 Mg Capsule) 2 mg PO PRN PRN PRN Reason: Diarrhea Ondansetron HCl (Ondansetron 4 Mg/2 Ml Vial) 4 mg IV Q6HP PRN PRN Reason: Nausea And Vomiting Garlic 1,000 Mg (Capsule) 1 dose PO [facility] Last Admin: 10/25/20 20:29 Dose: Not Given Documented by: Senna (Sennosides 1 Tablet) 2 tab PO [facility] Last Admin: 10/25/20 20:29 Dose: Not Given Documented by: Simvastatin (Simvastatin 20 Mg Tablet) 20 mg PO DAILY [facility] Sodium Chloride (0.9 % Sodium Chloride 10 Ml Syringe) 10 ml IV Q8 [facility] Last Admin: 10/26/20 06:00 Dose: Not Given Documented by: Trazodone HCl (Trazodone Hcl 50 Mg Tablet) 50 mg PO [facility] PRN PRN Reason: Insomnia Vitamin B Complex (Vitamin B Complex 1 Capsule) 1 cap PO QDAY [facility] Vitamin D (Vitamin D3 1,000 Unit Tablet) 1,000 unit PO QDAY [facility] ABG Interpretation ABG results: 10/25/20 14:00 ABG Methemoglobin 0.3 L VBG pH 7.22 L VBG pCO2 21.1 L VBG pO2 126.9 H VBG HCO3 8.5 L* VBG Total CO2 9.1 L* VBG O2 Saturation 92.0 H VBG Base Excess -17 L A/P Assessment and plan (1) Stage 3 acute kidney injury: Assessment and plan: Stage III acute kidney injury with admitting serum creatinine level 5.6 with baseline serum creatinine level less than 3. Again, I have the chance to talk to the son at the bedside regarding the overall prognosis and goals of care and B which is agreement that they would not pursued emergent hemodialysis at this point. Instead, we will admit the patient to inpatient medical surgical unit with cardiac monitoring and we will also provide the patient with IV fluid sodium bicarb with [id number]@100cchr as per nephrology recommendation to give adequate hydration to the patient's. We will also follow nephrology further recommendations. We will also repeat CMP daily to trend kidney functions. We will also avoid any nephrotoxic agents at this moment. Status: Acute (2) Hypokalemia: Assessment and plan: Different acute kidney injury, will not do potassium replacement protocol. Instead, will do manual replacement. For now, we will give the patient's potassium chloride 20 M EQ by mouth. We will repeat a CMP in the morning to trend serum potassium level and will repeat replacement as needed. We will also consult nephrology and any recommendations appreciated. Status: Acute (3) Diabetes: Assessment and plan: Measure hemoglobin A1c Hold any oral hypoglycemic Low dose correctional scale insulin is suggested Accu-Chek is suggested Hypoglycemia protocol Diabetic diet Status: Chronic (4) CKD (chronic kidney disease) stage 4, GFR 15-29 ml/min: Assessment and plan: Again, stage III acute kidney injury in the context of chronic kidney disease stage IV. Avoid nephrotoxic agents, continue IV fluid replacement, and consult nephrology any recommendations appreciated. No emergent hemodialysis at this point as per family wishes. Status: Chronic (5) Metabolic acidosis: Assessment and plan: Consult nephrology, recommendation appreciated. 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 Continue oral antihypertensives. Status: Chronic (7) Hyperlipidemia: Assessment and plan: LFTs are within normal limits at this point. Thus, continue statin therapy at the moment. Status: Chronic (8) Hypertension: Assessment and plan: See above sections with hypertension in stage IV chronic kidney disease due to type 2 diabetes mellitus. In short, continue oral antihypertensive. 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 Status: Acute Time Spent With Patient Time: Total time spent is greater than 50% in coordination of care (as documented) at patient's floor/unit and/or counseling patient: QUALITY Stroke Symptom Onset Unknown: No VTE Deep Vein Thrombosis/Pulmonary Embolism Present on Admission: No
[2020-10-26] MEDS: DOCUSATE SODIUM 100 MG CAPSULE PO SCH ×3 (09:27→22:06)
[2020-10-26] MEDS: amLODIPine 10 MG TABLET PO SCH (09:27)
[2020-10-26] MEDS: SIMVASTATIN 20 MG TABLET PO SCH (09:27)
[2020-10-26] MEDS: FOLIC ACID 1 MG TABLET PO SCH (09:27)
[2020-10-26] MEDS: INSULIN LISPRO 1 UNIT/0.01 ML UNIT SQ SCH ×4 (09:27→22:01)
[2020-10-26] MEDS: FISH OIL 1,000 MG CAPSULE PO SCH ×2 (10:27→21:52)
[2020-10-26] MEDS: ASCORBIC ACID 500 MG TABLET PO SCH (10:28)
[2020-10-26] MEDS: VITAMIN B COMPLEX 1 CAPSULE PO SCH (10:28)
[2020-10-26] MEDS: CALCIUM (OYSTER SHELL) 500 MG TABLET PO SCH (10:28)
[2020-10-26] MEDS: VITAMIN D3 1,000 UNIT TABLET PO SCH (10:28)
[2020-10-26] MEDS: SODIUM BICARBONATE 650 MG TABLET PO SCH ×3 (11:40→22:03)
[2020-10-26] MEDS: HEPARIN 5,000 UNIT/ML VIAL SQ SCH ×2 (11:45→22:01)
--- NOTE | 2020-10-26 11:59 | Nephrology Progress Note ---
SUBJECTIVE Subjective Patient information: Note initiated : 10/26/20 at 11:58 am Patient: Torey Restrepo 89 y/o M admitted on 10/25/20 for diarrhea. Chief Complaint: Diarrhea Pertinent ROS: Weakness Edema, mild, less than baseline No shortness of breath Constitutional Vitals: Vital Signs Temp Pulse Resp BP Pulse Ox 97.2 F 76 12 187/61 100 10/26/20 07:32 10/26/20 07:32 10/26/20 07:32 10/26/20 07:32 10/26/20 07:32 Period Temp Pulse Resp BP Sys/[place] Pulse Ox Last 24 Hr 96.8 F-97.2 F 61-82 9-20 109-187/50-132 95-100 Intake and Output 10/25/20 10/26/20 10/26/20 21:59 05:59 13:59 Intake Total 1000 50 1150 Output Total 1 2 Balance 099 14 9707 Weight 170 lb 3.2 oz Intake & Output: Intake & Output 10/25/20 10/26/20 10/26/20 21:59 05:59 13:59 Intake Total 1000 50 1150 Output Total 1 2 Balance 193 52 3743 Weight 170 lb 3.2 oz Intake: IV 1000 1150 Sodium Chloride 0.9% 500 ml @ 1000 Wide Open IV BOLUS ONE Rx#: [id number] Sodium Bicarbonate Adult 150 1150 Meq In Dextrose 5% in Water 1, 000 ml @ 100 mls/hr IV .[id number] [facility] Rx#:[id number] Oral 50 Output: # of times incontinent of urine 1 2 General appearance: cooperative and no acute distress Head Head exam: Present normal inspection Eye Eye exam: Present normal appearance ENT ENT exam: Present mucous membranes moist Respiratory Respiratory exam: Absent respiratory distress Cardiovascular Cardiovascular exam: Present normal rate and rhythm GI/Abdominal GI/Abdominal exam: Present soft; Absent tenderness Extremities Exam Extremities exam: Present pedal edema Neurological Exam Neurological exam: Present alert Psychiatric Psychiatric exam: Present normal affect and normal mood Skin Skin exam: Present warm; Absent rash A/P Assessment and plan (1) Acute renal failure superimposed on stage 4 chronic kidney disease: Assessment and plan: Torey Restrepo is an 89-year-old male with diabetes mellitus type 2, hypertension, chronic kidney disease stage 4, chronic anemia associated with chronic kidney disease and iron deficiency, dementia, history of upper GI bleeding, rectal bleeding presented to [facility] emergency department on 10/25/20 via EMS for diarrhea. Hr reported about 10 bouts of diarrhea in one day. In ED, his work up was significant for acute kidney injury. Nephrology consultation was requested for acute kidney injury. Acute kidney injury on chronic kidney disease stage 4 with hypokalemia, high anion gap metabolic acidosis associated with diarrhea and diuretics, present on arrival. There is no recent history of IV contrast administration or NSAID use. Workup: Urinalysis on 10/25/20: Yellow, hazy, pH 5.0, SG 1.009, protein negative, blood negative, leukocyte esterase negative. Previous workup: Labs on 08/16/20: Serum sodium 143, potassium 4.7, CO2 22, creatinine 2.8, eGFR 19, calcium 8.1, phosphorus 4.7, albumin 3.7, Vitamin D Total (25-Hydroxy) 39.43, PTH (intact) 169.1, magnesium 2.4, uric acid 10.2, TIBC 9%, HA1c 6.1%. CT Abdomen and Pelvis on 03/04/18: A small cyst in the left kidney is unchanged. There is mild perinephric stranding as previously seen. Mild prostate enlargement - the prostate measuring 5.6 cm in transverse dimension. Previously, it was 5.4 cm. Urinary bladder is normal. Progress: Chemistry pending. Baseline serum creatinine: 1.9-2.8. Urine output: 3 x without measurement reported. Recommendations/Plan: Sodium Bicarbonate 1,300 mg three times daily for metabolic acidosis. No urgent acute hemodialysis need. Avoid NSAIDs, nephrotoxic medications and IV contrast. Hold STORM/ARB, diuretics. Monitor BMP and urine output. Status: Acute (2) Hypokalemia: Status: Acute (3) Metabolic acidosis: Status: Acute Time Spent With Patient Time: Total time spent is greater than 50% in coordination of care (as documented) at patient's floor/unit and/or counseling patient:
[2020-10-26 12:29] LABS: Basophils # (Auto) 0.01 K/mcL (0.00-0.20); Basophils % (Auto) 0.1 % (0.0-2.0); Eosinophils # (Auto) 0.03 K/mcL (0.00-0.70); Eosinophils % (Auto) 0.4 % (0.0-7.0); Hematocrit 29.1 % (41.0-55.0); Hemoglobin 9.3 g/dL (13.5-16.5); Lymphocytes # (Auto) 0.52 K/mcL (1.50-4.80); Lymphocytes % (Auto) 6.6 % (15.0-49.0); Mean Cell Volume 76.8 fL (80.0-100.0); Monocytes # (Auto) 0.66 K/mcL (0.10-0.90); Monocytes % (Auto) 8.4 % (1.0-12.0); Neutrophils % (Auto) 84.5 % (38.0-78.0); Platelet Count 154 K/mcL (140-440); RBC 3.79 M/mcL (4.50-5.90); Red Cell Distribution Width 19.6 % (11.5-14.5); WBC 7.9 K/mcL (4.5-11.0)
[2020-10-26 13:43] LABS: ALT/SGPT 15 U/L (<40); AST/SGOT 15 U/L (<40); Albumin 3.2 gm/dL (3.2-5.2); Albumin/Globulin Ratio 1.1 (1.0-2.3); Alkaline Phosphatase 74 U/L (39-117); Bilirubin,Total 0.3 mg/dL (0.1-1.0); Blood Urea Nitrogen 171 mg/dL (8-23); Calcium 7.5 mg/dL (8.6-10.4); Carbon Dioxide 12 mmol/L (22-30); Chloride 114 mmol/L (96-108); Glomerular Filtration Rate 9; Glucose 222 mg/dL (70-105)
[2020-10-26] MEDS ORDERED: POTASSIUM CHLORIDE 20 MEQ in DEXTROSE 5% IN WATER 250 ML IV ONE (13:52)
[2020-10-26] MEDS ORDERED: SODIUM BICARBONATE VIAL 150 MEQ in DEXTROSE 5% IN WATER 850 ML IV SCH (15:00)
[2020-10-26] MEDS: SENNOSIDES 1 TABLET PO SCH (21:53)
[2020-10-26] MEDS: BACLOFEN 10 MG TABLET PO SCH (22:02)
[2020-10-26] MEDS: hydrOXYzine 25 MG TABLET PO SCH (22:02)
[2020-10-27] MEDS: 0.9 % SODIUM CHLORIDE 10 ML SYRINGE IV SCH ×3 (06:36→20:39)
[2020-10-27] MEDS: INSULIN LISPRO 1 UNIT/0.01 ML UNIT SQ SCH ×4 (07:33→20:34)
--- NOTE | 2020-10-27 07:52 | Nephrology Progress Note ---
SUBJECTIVE Subjective Patient information: Note initiated : 10/27/20 at 7:48 am Patient: Torey Restrepo 89 y/o M admitted on 10/25/20 for diarrhea. Chief Complaint: Weakness Pertinent ROS: Awake and alert No obvious discomfort No chest pain No shortness of breath Decreased responsiveness; not answering questions Constitutional Vitals: Vital Signs Temp Pulse Resp BP Pulse Ox 97.0 F 74 16 149/67 99 10/27/20 07:34 10/27/20 07:34 10/27/20 07:34 10/27/20 07:34 10/27/20 07:34 Period Temp Pulse Resp BP Sys/[place] Pulse Ox Last 24 Hr 96.8 F-97.9 F 62-85 12-23 136-165/64-72 98-100 Intake and Output 10/26/20 10/27/20 10/27/20 21:59 05:59 13:59 Intake Total 500 0 Output Total 4 Balance 496 0 Weight 172 lb 3.2 oz Intake & Output: Intake & Output 10/26/20 10/27/20 10/27/20 21:59 05:59 13:59 Intake Total 500 0 Output Total 4 Balance 496 0 Weight 172 lb 3.2 oz Intake: IV 260 Potassium Chloride 20 Meq In 260 Dextrose 5% in Water 250 ml @ 130 mls/hr IV ONCE ONE Rx#: [id number] Oral 240 0 Output: # of times incontinent of urine 4 Other: Meal Lunch Percent of Meal Consumed Refused Feeding Ability Total Assistance General appearance: cooperative and no acute distress Head Head exam: Present normal inspection ENT ENT exam: Present mucous membranes moist Respiratory Respiratory exam: Absent respiratory distress Cardiovascular Cardiovascular exam: Present normal rate and rhythm GI/Abdominal GI/Abdominal exam: Present soft; Absent tenderness Extremities Exam Extremities exam: Absent joint swelling and pedal edema Neurological Exam Neurological exam: Present alert Psychiatric Psychiatric exam: Present normal affect and normal mood Skin Skin exam: Present warm; Absent rash A/P Assessment and plan (1) Acute renal failure superimposed on stage 4 chronic kidney disease: Assessment and plan: Torey Restrepo is an 89-year-old male with diabetes mellitus type 2, hypertension, chronic kidney disease stage 4, chronic anemia associated with chronic kidney disease and iron deficiency, dementia, history of upper GI bleeding, rectal bleeding presented to [facility] emergency department on 10/25/20 via EMS for diarrhea. Hr reported about 10 bouts of diarrhea in one day. In ED, his work up was significant for acute kidney injury. Nephrology consultation was requested for acute kidney injury. Acute kidney injury on chronic kidney disease stage 4 with hypokalemia, high anion gap metabolic acidosis associated with diarrhea, decreased oral intake and diuretics, present on arrival. There is no recent history of IV contrast administration or NSAID use. Workup: Urinalysis on 10/25/20: Yellow, hazy, pH 5.0, SG 1.009, protein negative, blood negative, leukocyte esterase negative. Previous workup: Labs on 08/16/20: Serum sodium 143, potassium 4.7, CO2 22, creatinine 2.8, eGFR 19, calcium 8.1, phosphorus 4.7, albumin 3.7, Vitamin D Total (25-Hydroxy) 39.43, PTH (intact) 169.1, magnesium 2.4, uric acid 10.2, TIBC 9%, HA1c 6.1%. CT Abdomen and Pelvis on 03/04/18: A small cyst in the left kidney is unchanged. There is mild perinephric stranding as previously seen. Mild prostate enlargement - the prostate measuring 5.6 cm in transverse dimension. Previously, it was 5.4 cm. Urinary bladder is normal. Treatment: Sodium Bicarbonate 1,300 mg three times daily for metabolic acidosis. Sodium Bicarbonate 150 mEq in 1L D5W at 50 ml/hour for metabolic acidosis. Progress: Serum creatinine decreased from 5.1 to 5.0 in the past 24 hours. Baseline serum creatinine: 1.9-2.8. Urine output: 6 x without measurement reported. Metabolic acidosis, improving. Hypernatremia, new indicating low oral water intake. Hypokalemia associated partly due to resolving metabolic acidosis, being replaced. Recommendations/Plan: Sodium Bicarbonate 1,300 mg three times daily discontinued for hypernatremia. Sodium Bicarbonate 150 mEq in 1L D5W changed to 50 mEq in 1L D5W at 50 ml/hour for hypernatremia and metabolic acidosis. Potassium supplementation. Anticipate no acute hemodialysis need. Avoid NSAIDs, nephrotoxic medications and IV contrast. Hold STORM/ARB, diuretics. Monitor BMP and urine output. Status: Acute (2) Hypokalemia: Status: Acute (3) Metabolic acidosis: Status: Acute Time Spent With Patient Time: Total time spent is greater than 50% in coordination of care (as documented) at patient's floor/unit and/or counseling patient:
[2020-10-27 08:18] LABS: Basophils # (Auto) 0.01 K/mcL (0.00-0.20); Basophils % (Auto) 0.2 % (0.0-2.0); Eosinophils # (Auto) 0.14 K/mcL (0.00-0.70); Eosinophils % (Auto) 2.4 % (0.0-7.0); Hematocrit 31.4 % (41.0-55.0); Hemoglobin 10.2 g/dL (13.5-16.5); Lymphocytes % (Auto) 13.7 % (15.0-49.0); Mean Cell Volume 75.1 fL (80.0-100.0); Mean Corpuscular HGB Conc 32.5 g/dL (31.0-36.0); Mean Platelet Volume 10.4 fL (7.4-10.4); Monocytes # (Auto) 0.49 K/mcL (0.10-0.90); Monocytes % (Auto) 8.4 % (1.0-12.0); Neutrophils % (Auto) 75.3 % (38.0-78.0); Platelet Count 176 K/mcL (140-440); RBC 4.18 M/mcL (4.50-5.90); Red Cell Distribution Width 19.9 % (11.5-14.5); WBC 5.8 K/mcL (4.5-11.0)
[2020-10-27] MEDS: ASCORBIC ACID 500 MG TABLET PO SCH (08:31)
[2020-10-27] MEDS: HEPARIN 5,000 UNIT/ML VIAL SQ SCH ×2 (08:31→20:34)
[2020-10-27] MEDS: FOLIC ACID 1 MG TABLET PO SCH (08:32)
[2020-10-27] MEDS: CALCIUM (OYSTER SHELL) 500 MG TABLET PO SCH (08:32)
[2020-10-27] MEDS: amLODIPine 10 MG TABLET PO SCH (08:32)
[2020-10-27] MEDS: VITAMIN D3 1,000 UNIT TABLET PO SCH (08:32)
[2020-10-27] MEDS: SODIUM BICARBONATE 650 MG TABLET PO SCH (08:32)
[2020-10-27] MEDS: VITAMIN B COMPLEX 1 CAPSULE PO SCH (08:32)
[2020-10-27] MEDS: SIMVASTATIN 20 MG TABLET PO SCH (08:32)
[2020-10-27] MEDS: DOCUSATE SODIUM 100 MG CAPSULE PO SCH ×3 (08:33→20:39)
[2020-10-27] MEDS: FISH OIL 1,000 MG CAPSULE PO SCH ×2 (08:34→20:38)
[2020-10-27 09:03] LABS: ALT/SGPT 16 U/L (<40); AST/SGOT 15 U/L (<40); Albumin 3.2 gm/dL (3.2-5.2); Alkaline Phosphatase 78 U/L (39-117); Bilirubin,Total 0.4 mg/dL (0.1-1.0); Blood Urea Nitrogen 155 mg/dL (8-23); Calcium 7.6 mg/dL (8.6-10.4); Carbon Dioxide 16 mmol/L (22-30); Chloride 115 mmol/L (96-108); Globulin 3.2 gm/dL (2.2-3.7); Glomerular Filtration Rate 10; Glucose 139 mg/dL (70-105)
[2020-10-27] MEDS ORDERED: POTASSIUM CHLORIDE 20 MEQ TABLET PO ONE (09:56)
[2020-10-27] MEDS ORDERED: SODIUM BICARBONATE VIAL 50 MEQ in DEXTROSE 5% IN WATER 1,000 ML IV SCH (10:00)
--- NOTE | 2020-10-27 15:54 | Internal Med Progress Note ---
SUBJECTIVE Subjective Patient information: Note initiated : 10/27/20 at 3:50 pm Service Date, if different from initiated Date: [] Patient: Torye Restrepo 89 y/o M admitted on 10/25/20 for diarrhea. Chief Complaint: [Altered mental status, acute kidney injury] Overnight: there was no major overnight events. Subjective: not obtained due to clinical situations. Constitutional Vitals: Vital Signs Temp Pulse Resp BP Pulse Ox 36.0 C L 99 H 16 135/58 99 10/27/20 12:00 10/27/20 12:00 10/27/20 12:00 10/27/20 12:00 10/27/20 12:00 Period Temp Pulse Resp BP Sys/[place] Pulse Ox Last 24 Hr 36.0 C-36.6 C 62-99 12-23 135-165/58-72 98-100 Intake and Output 10/27/20 10/27/20 10/27/20 05:59 13:59 21:59 Intake Total 0 180 Output Total 1 Balance 0 179 Intake & Output: Intake & Output 10/27/20 10/27/20 10/27/20 05:59 13:59 21:59 Intake Total 0 180 Output Total 1 Balance 0 179 Intake: Nourishment/Supplement quantity 60 (ml) Oral 0 120 Output: # of times incontinent of urine 1 Other: Meal Lunch Percent of Meal Consumed 75% Feeding Ability Total Assistance Nourishment/Supplement name enlive Stool Size Small Stool Color Brown Pale Stool Consistency Loose # of times incontinent of 1 Bowels General appearance: cooperative and no acute distress Head Head exam: Present atraumatic and normocephalic Eye Eye exam: Present EOMI and PERRL ENT ENT exam: Present mucous membranes moist, normal exam and normal external ear exam Neck Neck exam: Present normal inspection; Absent lymphadenopathy, tenderness and thyromegaly Respiratory Respiratory exam: Absent accessory muscle use, respiratory distress and wheezes Cardiovascular Cardiovascular exam: Present normal rate and rhythm; Absent JVD GI/Abdominal GI/Abdominal exam: Present normal bowel sounds and soft; Absent organomegaly and tenderness Rectal Rectal exam: Present deferred Extremities Exam Extremities exam: Present full ROM, normal capillary refill and normal inspection; Absent tenderness Neurological Exam Neurological exam: Present alert and CN II-XII intact; Absent motor sensory deficit and oriented X3 Psychiatric Additional comments: unable to assess due to underlying clinical situations Skin Skin exam: Present dry and intact OBJ DATA Labs CBC & Chem 7: 10/27/20 06:37 10/27/20 06:37 Labs: Abnormal Lab Results 10/27/20 10/27/20 10/26/20 06:37 06:37 05:00 RBC 4.18 L Hgb 10.2 L Hct 31.4 L MCV 75.1 L MCH 24.4 L RDW 19.9 H MPV Neut % (Auto) Lymph % (Auto) 13.7 L Lymph # (Auto) 0.80 L ABG Methemoglobin VBG pH VBG pCO2 VBG pO2 VBG HCO3 VBG Total CO2 VBG O2 Saturation VBG Base Excess Carboxyhemoglobin Total Hemoglobin Sodium 152 H 146 H Potassium 2.8 L* 2.9 L* Chloride 115 H 114 H Carbon Dioxide 16 L 12 L Anion Gap 21.0 H 20.0 H BUN 155 H* 171 H* Creatinine 5.0 H* 5.1 H* Glucose 139 H 222 H Hemoglobin A1c Calcium 7.6 L 7.5 L Urine Appearance Hyaline Casts Urine Mucus 10/26/20 10/25/20 10/25/20 05:00 14:00 12:11 RBC 3.79 L Hgb 9.3 L Hct 29.1 L MCV 76.8 L MCH 24.5 L RDW 19.6 H MPV 11.0 H Neut % (Auto) 84.5 H Lymph % (Auto) 6.6 L Lymph # (Auto) 0.52 L ABG Methemoglobin 0.3 L VBG pH 7.22 L VBG pCO2 21.1 L VBG pO2 126.9 H VBG HCO3 8.5 L* VBG Total CO2 9.1 L* VBG O2 Saturation 92.0 H VBG Base Excess -17 L Carboxyhemoglobin 5.8 H Total Hemoglobin 9.1 L Sodium Potassium Chloride Carbon Dioxide Anion Gap BUN Creatinine Glucose Hemoglobin A1c 6.9 H Calcium Urine Appearance Hyaline Casts Urine Mucus 10/25/20 10/25/20 10/25/20 12:11 12:11 11:00 RBC 3.73 L Hgb 9.2 L Hct 28.8 L MCV 77.2 L MCH 24.7 L RDW 19.2 H MPV Neut % (Auto) 78.2 H Lymph % (Auto) 10.5 L Lymph # (Auto) 0.87 L ABG Methemoglobin VBG pH VBG pCO2 VBG pO2 VBG HCO3 VBG Total CO2 VBG O2 Saturation VBG Base Excess Carboxyhemoglobin Total Hemoglobin Sodium Potassium 3.2 L Chloride 113 H Carbon Dioxide 9 L* Anion Gap 21.0 H BUN 180 H* Creatinine 5.6 H* Glucose 132 H Hemoglobin A1c Calcium 7.4 L Urine Appearance Hazy A Hyaline Casts 6 H Urine Mucus Few A Meds: Medications Acetaminophen (Acetaminophen 325 Mg Tablet) 650 mg PO Q6HP PRN; Protocol PRN Reason: Per Pain Protocol/Fever > 101 Last Admin: 10/26/20 03:01 Dose: 650 mg Documented by: Amlodipine Besylate (Amlodipine 10 Mg Tablet) 10 mg PO DAILY [facility] Last Admin: 10/27/20 08:32 Dose: 10 mg Documented by: Ascorbic Acid (Ascorbic Acid 500 Mg Tablet) 1,000 mg PO QDAY [facility] Last Admin: 10/27/20 08:31 Dose: 1,000 mg Documented by: Baclofen (Baclofen 10 Mg Tablet) 10 mg PO QHS [facility] Last Admin: 10/26/20 22:02 Dose: 10 mg Documented by: Calcium Carbonate/Glycine (Calcium (Oyster Shell) 500 Mg Tablet) 500 mg PO QDAY [facility] Last Admin: 10/27/20 08:32 Dose: 500 mg Documented by: Dextrose (Dextrose 50% 50 Ml Vial) 0 ml IV UD PRN PRN Reason: Hypoglycemia Diagnostic Test (Pha) (Accu-Chek 1 Each Strip) 1 each FS ACHS [facility] Last Admin: 10/27/20 11:36 Dose: 1 each Documented by: Docusate Sodium (Docusate Sodium 100 Mg Capsule) 100 mg PO BID [facility] Last Admin: 10/27/20 10:56 Dose: 100 mg Documented by: Fish Oil (Fish Oil 1,000 Mg Capsule) 1 mg PO BID [facility] Last Admin: 10/27/20 08:34 Dose: Not Given Documented by: Folic Acid (Folic Acid 1 Mg Tablet) 1 mg PO DAILY [facility] Last Admin: 10/27/20 08:32 Dose: 1 mg Documented by: Glucose (Dextrose 31 Gm Oral.Susp) 15 gm PO PRN PRN PRN Reason: Hypoglycemia Heparin Sodium (Porcine) (Heparin 5,000 Unit/Ml Vial) 5,000 unit SQ Q12 [facility] Last Admin: 10/27/20 08:31 Dose: 5,000 unit Documented by: Hydroxyzine HCl (Hydroxyzine 25 Mg Tablet) 25 mg PO QHS [facility] Last Admin: 10/26/20 22:02 Dose: 25 mg Documented by: Sodium Bicarbonate 50 meq/ (Dextrose) 1,050 mls @ 50 mls/hr IV Q21H [facility] Last Admin: 10/27/20 10:55 Dose: 50 mls/hr Documented by: Insulin Human Lispro (Insulin Lispro 1 Unit/0.01 Ml Unit) 0 unit SQ ACHS [facility]; Protocol Last Admin: 10/27/20 11:38 Dose: 2 unit Documented by: Loperamide HCl (Loperamide 2 Mg Capsule) 2 mg PO PRN PRN PRN Reason: Diarrhea Ondansetron HCl (Ondansetron 4 Mg/2 Ml Vial) 4 mg IV Q6HP PRN PRN Reason: Nausea And Vomiting Garlic 1,000 Mg (Capsule) 1 dose PO [facility] Last Admin: 10/26/20 21:53 Dose: Not Given Documented by: Senna (Sennosides 1 Tablet) 2 tab PO [facility] Last Admin: 10/26/20 21:53 Dose: Not Given Documented by: Simvastatin (Simvastatin 20 Mg Tablet) 20 mg PO DAILY [facility] Last Admin: 10/27/20 08:32 Dose: 20 mg Documented by: Sodium Chloride (0.9 % Sodium Chloride 10 Ml Syringe) 10 ml IV Q8 [facility] Last Admin: 10/27/20 15:04 Dose: Not Given Documented by: Trazodone HCl (Trazodone Hcl 50 Mg Tablet) 50 mg PO [facility] PRN PRN Reason: Insomnia Last Admin: 10/26/20 19:14 Dose: 50 mg Documented by: Vitamin B Complex (Vitamin B Complex 1 Capsule) 1 cap PO QDAY [facility] Last Admin: 10/27/20 08:32 Dose: 1 cap Documented by: Vitamin D (Vitamin D3 1,000 Unit Tablet) 1,000 unit PO QDAY [facility] Last Admin: 10/27/20 08:32 Dose: 1,000 unit Documented by: ABG Interpretation ABG results: 10/25/20 14:00 ABG Methemoglobin 0.3 L VBG pH 7.22 L VBG pCO2 21.1 L VBG pO2 126.9 H VBG HCO3 8.5 L* VBG Total CO2 9.1 L* VBG O2 Saturation 92.0 H VBG Base Excess -17 L A/P Assessment and plan (1) Stage 3 acute kidney injury: Assessment and plan: Stage III acute kidney injury with admitting serum creatinine level 5.6 with baseline serum creatinine level less than 3. Again, I have the chance to talk to the son at the bedside regarding the overall prognosis and goals of care and B which is agreement that they would not pursued emergent hemodialysis at this point. Instead, we will admit the patient to inpatient medical surgical unit with cardiac monitoring and we will also provide the patient with IV fluid sodium bicarb with D5W@100cchr as per nephrology recommendation to give adequate hydration to the patient's. We will also follow nephrology further recommendations. We will also repeat CMP daily to trend kidney functions. We will also avoid any nephrotoxic agents at this moment. Status: Acute (2) Hypokalemia: Assessment and plan: Different acute kidney injury, will not do potassium replacement protocol. Instead, will do manual replacement. For now, we will give the patient's potassium chloride 20 M EQ by mouth. We will repeat a CMP in the morning to trend serum potassium level and will repeat replacement as needed. We will also consult nephrology and any recommendations appreciated. Status: Acute (3) Diabetes: Assessment and plan: Measure hemoglobin A1c Hold any oral hypoglycemic Low dose correctional scale insulin is suggested Accu-Chek is suggested Hypoglycemia protocol Diabetic diet Status: Chronic (4) CKD (chronic kidney disease) stage 4, GFR 15-29 ml/min: Assessment and plan: Again, stage III acute kidney injury in the context of chronic kidney disease stage IV. Avoid nephrotoxic agents, continue IV fluid replacement, and consult nephrology any recommendations appreciated. No emergent hemodialysis at this point as per family wishes. Status: Chronic (5) Metabolic acidosis: Assessment and plan: Consult nephrology, recommendation appreciated. 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 Continue oral antihypertensives. Status: Chronic (7) Hyperlipidemia: Assessment and plan: LFTs are within normal limits at this point. Thus, continue statin therapy at the moment. Status: Chronic (8) Hypertension: Assessment and plan: See above sections with hypertension in stage IV chronic kidney disease due to type 2 diabetes mellitus. In short, continue oral antihypertensive. Status: Chronic (9) Dementia: Assessment and plan: Consult physical therapy and bottle caser for placement pending. Status: Acute Narrative A/P Narrative: Had a discussion with son regarding goal of care. Will re-address tomorrow to see if they are ready to switch to palliative care only and hence SNF placement. Time Spent With Patient Time: Total time spent is greater than 50% in coordination of care (as documented) at patient's floor/unit and/or counseling patient: Total time spent with greater than 50% in coordination of care (as documented) at patient's floor/unit and/or counseling patient:: 15 - 24 minutes QUALITY Stroke Symptom Onset Unknown: No VTE Deep Vein Thrombosis/Pulmonary Embolism Present on Admission: No
[2020-10-27] MEDS: BACLOFEN 10 MG TABLET PO SCH (20:35)
[2020-10-27] MEDS: hydrOXYzine 25 MG TABLET PO SCH (20:35)
[2020-10-27] MEDS: SENNOSIDES 1 TABLET PO SCH (20:39)
[2020-10-27] MEDS: LOPERAMIDE 2 MG CAPSULE PO PRN (23:04)
[2020-10-28] MEDS: 0.9 % SODIUM CHLORIDE 10 ML SYRINGE IV SCH (06:20)
--- NOTE | 2020-10-28 06:23 | Nephrology Progress Note ---
SUBJECTIVE Subjective Patient information: Note initiated : 10/28/20 at 6:21 am Patient: Torey Restrepo 89 y/o M admitted on 10/25/20 for diarrhea. Chief Complaint: Weakness Pertinent ROS: Weakness Nonverbal Oral intake monitored by staff Constitutional Vitals: Vital Signs Temp Pulse Resp BP Pulse Ox 98.2 F 85 16 131/51 96 10/28/20 04:20 10/28/20 04:20 10/28/20 04:20 10/28/20 04:20 10/28/20 04:20 Period Temp Pulse Resp BP Sys/[place] Pulse Ox Last 24 Hr 96.8 F-98.2 F 69-99 12-20 90-156/36-69 96-99 Intake and Output 10/27/20 10/28/20 10/28/20 21:59 05:59 13:59 Intake Total 120 1000 Output Total 4 2 Balance 116 998 Weight 171 lb 8 oz Intake & Output: Intake & Output 10/27/20 10/28/20 10/28/20 21:59 05:59 13:59 Intake Total 120 1000 Output Total 4 2 Balance 116 998 Weight 171 lb 8 oz Intake: IV 1000 Sodium Bicarbonate Vial 150 Meq 1000 In Dextrose 5% in Water 850 ml @ 50 mls/hr IV Q20H [facility] Rx#: [id number] Oral 120 0 Output: # of times incontinent of urine 4 2 Other: Meal Nourishment/Supplement Percent of Meal Consumed 100% Feeding Ability Total Assistance Urine Color Bright Yellow Stool Size Smear Stool Color Pale Stool Consistency Loose # of times incontinent of 1 Bowels General appearance: cooperative and no acute distress Head Head exam: Present normal inspection Eye Eye exam: Present normal appearance ENT ENT exam: Present mucous membranes moist Respiratory Respiratory exam: Absent respiratory distress Cardiovascular Cardiovascular exam: Present normal rate and rhythm GI/Abdominal GI/Abdominal exam: Present soft; Absent tenderness Extremities Exam Extremities exam: Absent joint swelling and pedal edema Neurological Exam Neurological exam: Present alert Psychiatric Additional comments: nonverbal Skin Skin exam: Present warm; Absent rash A/P Assessment and plan (1) Acute renal failure superimposed on stage 4 chronic kidney disease: Assessment and plan: Torey Restrepo is an 89-year-old male with diabetes mellitus type 2, hypertension, chronic kidney disease stage 4, chronic anemia associated with chronic kidney disease and iron deficiency, dementia, history of upper GI bleeding, rectal bleeding presented to [facility] emergency department on 10/25/20 via EMS for diarrhea. Hr reported about 10 bouts of diarrhea in one day. In ED, his work up was significant for acute kidney injury. Nephrology consultation was requested for acute kidney injury. Acute kidney injury on chronic kidney disease stage 4 with hypokalemia, high anion gap metabolic acidosis associated with diarrhea, decreased oral intake and diuretics, present on arrival. There is no recent history of IV contrast administration or NSAID use. Workup: Urinalysis on 10/25/20: Yellow, hazy, pH 5.0, SG 1.009, protein negative, blood negative, leukocyte esterase negative. Previous workup: Labs on 08/16/20: Serum sodium 143, potassium 4.7, CO2 22, creatinine 2.8, eGFR 19, calcium 8.1, phosphorus 4.7, albumin 3.7, Vitamin D Total (25-Hydroxy) 39.43, PTH (intact) 169.1, magnesium 2.4, uric acid 10.2, TIBC 9%, HA1c 6.1%. CT Abdomen and Pelvis on 03/04/18: A small cyst in the left kidney is unchanged. There is mild perinephric stranding as previously seen. Mild prostate enlargement - the prostate measuring 5.6 cm in transverse dimension. Previously, it was 5.4 cm. Urinary bladder is normal. Treatment: Sodium Bicarbonate 50 mEq in 1L D5W at 50 ml/hour for hypernatremia and metabolic acidosis. Progress: Serum creatinine increased from 5.0 to 5.4 in the past 24 hours. Baseline serum creatinine: 1.9-2.8. Urine output: 7 x without measurement reported. Metabolic acidosis, improving. Hypernatremia, associated with low oral water intake. Hypokalemia associated partly due to resolving metabolic acidosis, being replaced. Recommendations/Plan: Sodium Bicarbonate 50 mEq in 1L D5W at 50 ml/hour for hypernatremia and metabolic acidosis. Potassium supplementation. Monitor acute hemodialysis need with BMP and urine output. Avoid NSAIDs, nephrotoxic medications and IV contrast. Hold STORM/ARB, diuretics. Status: Acute (2) Hypokalemia: Status: Acute (3) Metabolic acidosis: Status: Acute Time Spent With Patient Time: Total time spent is greater than 50% in coordination of care (as documented) at patient's floor/unit and/or counseling patient:
[2020-10-28] MEDS: LOPERAMIDE 2 MG CAPSULE PO PRN (06:58)
[2020-10-28] MEDS: INSULIN LISPRO 1 UNIT/0.01 ML UNIT SQ SCH (07:01)
[2020-10-28 07:52] LABS: Basophils # (Auto) 0.01 K/mcL (0.00-0.20); Basophils % (Auto) 0.1 % (0.0-2.0); Eosinophils # (Auto) 0.13 K/mcL (0.00-0.70); Eosinophils % (Auto) 1.6 % (0.0-7.0); Hematocrit 31.2 % (41.0-55.0); Hemoglobin 10.1 g/dL (13.5-16.5); Lymphocytes # (Auto) 0.56 K/mcL (1.50-4.80); Lymphocytes % (Auto) 6.9 % (15.0-49.0); Mean Cell Volume 75.2 fL (80.0-100.0); Mean Corpuscular HGB Conc 32.4 g/dL (31.0-36.0); Mean Platelet Volume 11.1 fL (7.4-10.4); Monocytes % (Auto) 8.6 % (1.0-12.0); Neutrophils % (Auto) 82.8 % (38.0-78.0); Platelet Count 188 K/mcL (140-440); RBC 4.15 M/mcL (4.50-5.90); Red Cell Distribution Width 20.2 % (11.5-14.5); WBC 8.1 K/mcL (4.5-11.0)
--- NOTE | 2020-10-28 08:43 | Discharge Summary ---
Discharge Provider Provider Patient information: Note initiated : 10/28/20 at 8:37 am Service Date, if different from initiated Date: [] Patient: Torey Restrepo 89 y/o M admitted on 10/25/20 for diarrhea. Chief Complaint: [altered mental status ] Date of admission: 10/25/20 16:49 Discharge date: 10/28/20 Primary care physician: Igor Rust Consults: 10/25/20 Consult to Physician [CONS] Stat Comment: Consulting Provider: Maikel Kulkarni Reason For Exam: Physician to Consult Consult to Physician [CONS] Stat Comment: Consulting Provider: [facility] Reason For Exam: Physician to Consult Consult to Physician [CONS] Stat Comment: [place] Consulting Provider: Chey Villanueva Reason For Exam: Physician to Consult Discharge Meds Discharge Medications Home Medications amlodipine 10 mg PO DAILY 09/16/15 [History Confirmed 10/25/20 Last Taken Unknown] cholecalciferol (vitamin D3) 50,000 unit PO WEEKLY 09/16/15 [History Confirmed 10/25/20 Last Taken Unknown] baclofen 10 mg tablet 10 mg PO QHS tab 04/25/18 [History Confirmed 10/25/20 Last Taken Unknown] hydroxyzine HCl 25 mg tablet 25 mg PO QHS tab 04/25/18 [History Confirmed 10/25/20 Last Taken Unknown] pravastatin 40 mg tablet 40 mg PO QDAY 04/25/18 [History Confirmed 10/25/20 Last Taken Unknown] ascorbic acid (vitamin C) 1,000 mg tablet 1 g PO QDAY tab 09/23/18 [History Confirmed 10/25/20 Last Taken Unknown] calcium citrate 500 mg PO QDAY tab 09/23/18 [History Confirmed 10/25/20 Last Taken Unknown] cholecalciferol (vitamin D3) 25 mcg (1,000 unit) capsule 1,000 unit PO QDAY 09/23/18 [History Confirmed 10/25/20 Last Taken Unknown] docusate sodium 50 mg capsule 50 mg PO QDAY 09/23/18 [History Confirmed 10/25/20 Last Taken Unknown] glipizide 5 mg tablet, extended release 24 hr 15 mg PO QAMAC tab 09/23/18 [History Confirmed 10/25/20 Last Taken Unknown] slqrs-7e-sba-epa-fish oil 120 mg-180 mg-60 mg-1,200 mg capsule, DR 1 cap PO QDAY cap 09/23/18 [History Confirmed 10/25/20 Last Taken Unknown] saw palmetto 450 mg capsule 450 mg PO BID 09/23/18 [History Confirmed 10/25/20 Last Taken Unknown] vitamin B complex 1 tab PO QDAY 09/23/18 [History Confirmed 10/25/20 Last Taken Unknown] bumetanide 1 mg tablet See Rx Instructions .ROUTE QDAY #150 tab 05/06/20 [Rx Confirmed 10/25/20 Last Taken Unknown] Sylvie's wort 300 mg PO QAM 10/25/20 [History Confirmed 10/25/20 Last Taken Unknown] chromium picolinate 1,000 mcg PO ONCE 10/25/20 [History Confirmed 10/25/20 Last Taken Unknown] folic acid 800 mg PO HS 10/25/20 [History Confirmed 10/25/20 Last Taken Unknown] garlic 1,000 mg PO HS 10/25/20 [History Confirmed 10/25/20 Last Taken Unknown] omega 6-bsn-qnk-fish oil [Fish Oil] 1 cap PO HS 10/25/20 [History Confirmed 10/25/20 Last Taken Unknown] COURSE Hospital Course Hospital course: Patient was admitted on 10/25/20 for altered mental status. CT head w/o contrast was performed in the ED, and no acute intracranial pathologies were found. However, he was found to have acute kidney injury on top of chronic kidney disease. His baseline serum creatinine level was around 3, and it was above 5 at time of admission. After a throughout talk with family member at the bedside, the decision was made to NOT perform any invasive procedures including dialysis. He was also made to be DNI DNR. Instead, IV fluid was given. His kidney functions remained to be about the same throughout his hospital stay, and his altered mental status was believed to be metabolic encephalopathy. On 10/28/20, he was accepted by SNF, and he was being discharged. All questions were answered prior to patient being physically discharged. Discharge diagnosis: metabolic encephalopathy Time Spent with Patient Time attestation: Total time spent providing and/or coordinating discharge services: Patient was admitted on 10/25/20 for altered mental status. CT head w/o contrast was performed in the ED, and no acute intracranial pathologies were found. However, he was found to have acute kidney injury on top of chronic kidney disease. His baseline serum creatinine level was around 3, and it was above 5 at time of admission. After a throughout talk with family member at the bedside, the decision was made to NOT perform any invasive procedures including dialysis. He was also made to be DNI DNR. Instead, IV fluid was given. His kidney functions remained to be about the same throughout his hospital stay, and his altered mental status was believed to be metabolic encephalopathy. On 10/28/20, he was accepted by SNF, and he was being discharged. All questions were answered prior to patient being physically discharged. EXAM Constitutional Vitals: Temp Pulse Resp BP Pulse Ox 36.8 C 85 16 131/51 96 10/28/20 04:20 10/28/20 04:20 10/28/20 04:20 10/28/20 04:20 10/28/20 04:20 General appearance: cooperative and no acute distress Head Head exam: Present atraumatic and normocephalic Eye Eye exam: Present EOMI and PERRL ENT ENT exam: Present mucous membranes moist, normal exam and normal external ear exam Neck Neck exam: Present normal inspection; Absent lymphadenopathy, tenderness and thyromegaly Respiratory Respiratory exam: Absent accessory muscle use, respiratory distress and wheezes Cardiovascular Cardiovascular exam: Present normal rate and rhythm; Absent JVD GI/Abdominal GI/Abdominal exam: Present normal bowel sounds and soft; Absent organomegaly and tenderness Rectal Rectal exam: Present deferred Extremities Exam Extremities exam: Present full ROM, normal capillary refill and normal inspection; Absent tenderness Neurological Exam Neurological exam: Present alert and CN II-XII intact; Absent motor sensory deficit and oriented X3 Psychiatric Psychiatric exam: Present normal affect and normal mood; Absent anxious and de pressed Skin Skin exam: Present dry and intact Discharge Data Data Completed and Pending Labs on day of discharge: Labs from last 24 hours 10/28/20 10/28/20 10/27/20 06:02 06:02 06:37 WBC 8.1 RBC 4.15 L Hgb 10.1 L Hct 31.2 L MCV 75.2 L MCH 24.3 L MCHC 32.4 RDW 20.2 H Plt Count 188 MPV 11.1 H Neut % (Auto) 82.8 H Lymph % (Auto) 6.9 L G[place]pie % (Auto) 8.6 Eos % (Auto) 1.6 Baso % (Auto) 0.1 Lymph # (Auto) 0.56 L Gillespie # (Auto) 0.70 Eos # (Auto) 0.13 Baso # (Auto) 0.01 Absolute Neutrophils 6.74 Sodium Pending 152 H Potassium Pending 2.8 L* Chloride Pending 115 H Carbon Dioxide Pending 16 L Anion Gap Pending 21.0 H BUN Pending 155 H* Creatinine Pending 5.0 H* GFR Calculation Pending 10 Glucose Pending 139 H Calcium Pending 7.6 L Total Bilirubin Pending 0.4 AST Pending 15 ALT Pending 16 Alkaline Phosphatase Pending 78 Total Protein Pending 6.4 Albumin Pending 3.2 Globulin Pending 3.2 Albumin/Globulin Ratio Pending 1.0 Preliminary micro results at discharge 10/25/20 14:00 Blood Culture - Preliminary Blood 10/25/20 13:53 Blood Culture - Preliminary Blood Discharge Plan Patient/Caregiver Discharge Instructions Activity: increase activity as tolerated Diet: Regular Diet Prescriptions: Continued bumetanide 1 mg tablet See Rx Instructions .ROUTE QDAY Qty: 150 RF: 11 pravastatin 40 mg tablet 40 mg PO QDAY RF: 0 baclofen 10 mg tablet 10 mg PO QHS RF: 0 hydroxyzine HCl 25 mg tablet 25 mg PO QHS RF: 0 saw palmetto 450 mg capsule 450 mg PO BID RF: 0 calcium citrate 250 mg calcium tablet 500 mg PO QDAY RF: 0 cholecalciferol (vitamin D3) 1,000 unit capsule 1,000 unit PO QDAY RF: 0 ascorbic acid (vitamin C) 1,000 mg tablet 1 g PO QDAY RF: 0 bekth-4v-tuw-epa-fish oil 120 mg-180 mg-60 mg-1,200 mg capsule, DR 120 mg-180 mg- 60 mg-1,200 mg capsule,delayed release(DR/EC) 1 cap PO QDAY RF: 0 vitamin B complex tablet 1 tab PO QDAY RF: 0 Stool Softener 50 mg capsule 50 mg PO QDAY RF: 0 amlodipine 10 MG tablet 10 mg PO DAILY RF: 0 cholecalciferol (vitamin D3) 10,000 UNIT capsule 50,000 unit PO WEEKLY RF: 0 glipizide 5 mg tablet extended release 24hr 15 mg PO QAMAC RF: 0 Sylvie's wort 300 mg Tablet 300 mg PO QAM RF: 0 garlic 1,000 mg Capsule 1,000 mg PO HS RF: 0 folic acid 800 mcg Tablet 800 mg PO HS RF: 0 omega 4-sgy-cwf-fish oil [Fish Oil] 1,200 (144-216) mg Capsule 1 cap PO HS RF: 0 chromium picolinate 1,000 mcg Tablet 1,000 mcg PO ONCE RF: 0 Follow Up Plan Follow up with: Igor Rust MD [Primary Care Provider] - Patient Disposition: [facility] Prognosis: Serious Rehab Potential: Fair Discharge Orders: Discharge Order (Routine); Ordered 10/28/20 Ordered By: Maikel THOMSON VTE Deep Vein Thrombosis/Pulmonary Embolism Present on Admission: No
[2020-10-28 08:54] LABS: ALT/SGPT 18 U/L (<40); AST/SGOT 13 U/L (<40); Albumin 3.5 gm/dL (3.2-5.2); Albumin/Globulin Ratio 1.2 (1.0-2.3); Alkaline Phosphatase 80 U/L (39-117); Bilirubin,Total 0.3 mg/dL (0.1-1.0); Blood Urea Nitrogen 146 mg/dL (8-23); Calcium 7.2 mg/dL (8.6-10.4); Carbon Dioxide 19 mmol/L (22-30); Chloride 117 mmol/L (96-108); Glomerular Filtration Rate 9; Glucose 222 mg/dL (70-105)
[2020-10-28] MEDS: FOLIC ACID 1 MG TABLET PO SCH (09:11)
[2020-10-28] MEDS: SIMVASTATIN 20 MG TABLET PO SCH (09:11)
[2020-10-28] MEDS: CALCIUM (OYSTER SHELL) 500 MG TABLET PO SCH (09:11)
[2020-10-28] MEDS: HEPARIN 5,000 UNIT/ML VIAL SQ SCH (09:11)
[2020-10-28] MEDS: ASCORBIC ACID 500 MG TABLET PO SCH (09:12)
[2020-10-28] MEDS: FISH OIL 1,000 MG CAPSULE PO SCH (09:12)
[2020-10-28] MEDS: VITAMIN D3 1,000 UNIT TABLET PO SCH (09:12)
[2020-10-28] MEDS: VITAMIN B COMPLEX 1 CAPSULE PO SCH (09:12)
[2020-10-28] MEDS: amLODIPine 10 MG TABLET PO SCH (09:12)
[2020-10-28] MEDS: DOCUSATE SODIUM 100 MG CAPSULE PO SCH (09:12)
== END 2020-10-28 10:40 | DRG 71 ==
LOC: ED 11:45 → MEDSUR 16:49
PROVIDERS: ADMIT Internal Medicine; ATTEND Internal Medicine